=== PATIENT | female | born 1950 | race American Indian/Alaskan Native ===

== ENCOUNTER 2016-07-03 04:07 | Inpatient (IN) | payer MEDICARE ==
[2016-07-03] MEDS ORDERED: TYLENOL PO STA (04:53)
[2016-07-03] MEDS ORDERED: NACL 0.9% 500 ML 500 ML IV ONE (04:53)
[2016-07-03 05:22] LABS: Bacteria,Urine 4+ /HPF (Negative); Bilirubin,Urine NEG (Negative); Blood,Urine LG (Negative); Ketones,Urine NEG (Negative); Leukocyte Esterase,Urine LG (Negative); Mucus,Urine FEW /HPF; Nitrite,Urine NEG (Negative)
[2016-07-03 06:35] LABS: Basophils % (Auto) 0.6 % (0.0-1.8); Eosinophils % (Auto) 0.6 % (0.0-4.3); Hematocrit 31.2 % (30.3-42.9); Hemoglobin 10.1 gm/dl (10.1-14.3); Mean Corpuscular HGB Conc 33 % (30-34); Mean Corpuscular Hemoglobin 28 pg (28-32); Mean Corpuscular Volume 86 fl (79-97); Platelet Count 237 K/mm3 (140-440); Red Blood Count 3.63 M/mm3 (3.65-5.03); Red Cell Distribution Width 19.8 % (13.2-15.2)
[2016-07-03 06:44] LABS: INR 1.09 (0.87-1.13)
[2016-07-03 07:00] LABS: Albumin/Globulin Ratio 0.7 %; Bilirubin,Total 1.1 mg/dL (0.1-1.2); Chloride 98.5 mmol/L (98-107); Total Protein 7.3 g/dL (6.3-8.2)
--- NOTE | 2016-07-03 07:02 | Emergency Department Report ---
HPI - General Chief Complaint: Upper Respiratory Infection Time Seen by Provider: 07/03/16 06:55 - HPI HPI: Chief complaint: Labored breathing HPI: Patient is a 66-year-old female street of hypertension, insulin-dependent diabetes, CVA, decubitus ulcers presents today with labored breathing. Patient lives with her sister who had home health until about one month ago and now takes care of her by herself. Patient has a history of ulcers to her sacral area and her toes. Patient was being seen by wound care nurse until about a month ago and she was discharged for improvement. Sister features through a PEG tube and states for the last 3-4 months she has had decreased mental capacity and only occasionally recognizes her sister. Patient is aphasic from her stroke. Sister states she wants patient to be a full code. Mode of arrival: [EMS] Source: Nursing notes and patient's sister Began: Breathing difficulties over the last day Duration: Continuous Context: See above Quality: Unable to assess Severity: Unable to assess Improved with: Unable to assess Worsened with: Unable to assess Associated signs and symptoms: Unable to assess ED Past Medical Hx - Past Medical History Previous Medical History?: Yes Hx Hypertension: Yes (1999;CVA 06/06 right sided weakness) Hx CVA: Yes (06/19/15) Hx Diabetes: Yes Hx Renal Disease: Yes (chronic renal insufficiency) Hx Arthritis: Yes (back, knees) Hx Dementia: Yes Hx HIV: No Additional medical history: gout, high cholesterol - Surgical History Past Surgical History?: Yes Additional Surgical History: brain. peg tube - Social History Smoking Status: Never Smoker Substance Use Type: None - Medications Home Medications: Home Medications Medication Instructions Recorded Confirmed Last Taken Type Allopurinol [Zyloprim] 100 mg PO QDAY 07/03/16 07/03/16 Unknown History Amantadine [Symmetrel] 100 mg PO DAILY 07/03/16 07/03/16 Unknown History Aspirin [Aspirin TAB] 325 mg PO QDAY 07/03/16 07/03/16 Unknown History AtorvaSTATin [Lipitor] 40 mg PO DAILY 07/03/16 07/03/16 Unknown History Clopidogrel Bisulfate [Plavix] 75 mg PO DAILY 07/03/16 07/03/16 Unknown History Docusate Sodium [Colace] 100 mg PO BID 07/03/16 07/03/16 Unknown History FLUoxetine [PROzac] 20 mg PO QDAY 07/03/16 07/03/16 Unknown History Ferrous Sulfate [Feosol] 325 mg PO BID 07/03/16 07/03/16 Unknown History Insulin Aspart [Novolog Flexpen] 10 unit SQ TID 07/03/16 07/03/16 Unknown History Insulin Detemir [Levemir VIAL] 30 unit SQ QHS 07/03/16 07/03/16 Unknown History Insulin Lispro [HumaLOG VIAL] 15 units SQ TID 07/03/16 07/03/16 Unknown History Metoprolol [Lopressor] 100 mg PO BID 07/03/16 07/03/16 Unknown History Rivastigmine [Exelon] 4.6 mg TD DAILY 07/03/16 07/03/16 Unknown History amLODIPine [Norvasc] 5 mg PO DAILY 07/03/16 07/03/16 Unknown History ED Review of Systems ROS: Stated complaint: SNORING RESPIRATIONS Other details as noted in HPI Comment: Unobtainable due to pts medical conditions (patient is unresponsive and aphasic) Physical Exam - Physical Exam Vital Signs: Vital Signs 07/03/16 07/03/16 07/03/16 04:37 04:40 04:48 Temperature 99.8 F H 99.8 F H Pulse Rate 113 H 113 H 113 H Respiratory 34 H 24 24 Rate Blood Pressure 137/83 137/83 Blood Pressure 137/83 [Left] O2 Sat by Pulse 92 91 94 Oximetry Physical Exam: GENERAL: The patient is a chronically ill-appearing -[place] female with slightly labored breathing. HEENT: Normocephalic. Atraumatic. Patient has dry mucous membranes. NECK: Supple. No meningitic signs are noted. There is no adenopathy noted. CHEST/LUNGS: Clear to auscultation. There is mild respiratory distress noted. HEART/CARDIOVASCULAR: Regular. There is tachycardia. ABDOMEN: Abdomen is soft, nontender. Patient has normal bowel sounds. There is no abdominal distention. He has a G-tube. SKIN: Early breakdown to the sacral area and diaper dermatitis genitalia. There is no edema. There is no diaphoresis. NEURO: The patient is nonverbal. Patient does not to tactile stimulation. MUSCULOSKELETAL: There is no deformity. There is no evidence of acute injury. ED Course Vital Signs 07/03/16 07/03/16 07/03/16 04:37 04:40 04:48 Temperature 99.8 F H 99.8 F H Pulse Rate 113 H 113 H 113 H Respiratory 34 H 24 24 Rate Blood Pressure 137/83 137/83 Blood Pressure 137/83 [Left] O2 Sat by Pulse 92 91 94 Oximetry - Reevaluation(s) Reevaluation #1: 07/03/16 07:04 Patient given Tylenol and IV fluids prior to my evaluation. 07/03/16 07:13 Patient will be given 2 L of normal saline and 1 g of IV Rocephin and admitted to the hospitalists for acute renal failure ED Medical Decision Making - Lab Data Result diagrams: 07/03/16 05:38 07/03/16 05:38 Laboratory Tests 07/03/16 07/03/16 07/03/16 04:51 05:38 05:38 PT 14.0 INR 1.09 VBG pH Lactic Acid 1.5 Urine Turbidity Cloudy Urine pH 7.0 Ur Specific [place] 1.012 Ur Leukocyte Esterase Lg Urine WBC (Auto) 12.0 H Urine RBC (Auto) 2.0 U Epithel Cells (Auto) 25.0 H Urine Bacteria (Auto) 4+ 07/03/16 05:38 PT INR VBG pH 7.438 H Lactic Acid Urine Turbidity Urine pH Ur Specific [place] Ur Leukocyte Esterase Urine WBC (Auto) Urine RBC (Auto) U Epithel Cells (Auto) Urine Bacteria (Auto) - EKG Data -: EKG Interpreted by Me EKG shows normal: sinus rhythm Rate: tachycardia (116) - EKG Data When compared to previous EKG there are: changes noted (tachycardia is new.) Interpretation: other (left axis deviation, minimal voltage criteria for LVH.) Critical care attestation.: If time is entered above; I have spent that time in minutes in the direct care of this critically ill patient, excluding procedure time. ED Disposition Clinical Impression: ARF (acute renal failure) Qualifiers: Acute renal failure type: unspecified Qualified Code(s): N17.9 - Acute kidney failure, unspecified Urinary tract infection Qualifiers: Urinary tract infection type: site unspecified Hematuria presence: without hematuria Qualified Code(s): N39.0 - Urinary tract infection, site not specified Disposition: OP ADMITTED IP TO THIS HOSP Is pt being admited?: Yes Does the pt Need Aspirin: Yes Condition: Serious Referrals: PRIMARY CARE, [Primary Care Provider] - 3-5 Days Time of Disposition: 07:14 (admit to the hospitalist)
[2016-07-03 07:05] LABS: BUN/Creatinine Ratio 19.86
[2016-07-03 07:06] LABS: Calcium 12.2 mg/dL (8.4-10.2)
[2016-07-03] MEDS ORDERED: NACL 0.9% 1000 ML IV ONE (07:07)
[2016-07-03] MEDS ORDERED: ASPIRIN FEEDTUBE ONE (07:16)
--- NOTE | 2016-07-03 07:22 | XRay Report ---
AP CHEST: HISTORY: Sepsis, fever AP view of the chest demonstrates a normal mediastinal and cardiac contour with clear lungs and normal bony and soft tissue structures. IMPRESSION: Unremarkable AP chest. No significant change since 02/01/16.
--- NOTE | 2016-07-03 07:23 | Admit Criteria Form ---
"Admission Criteria Documentation: RENAL FAILURE, ACUTE Clinical Indications for Admission to Inpatient Care ( Place 'X' for any and all applicable criteria): Admission is indicated for ALL (if I & II) or III of the following [A](2)(3)(4)( 5)(6)(7): [ ]I. Acute renal failure as indicated by ANY ONE of the following: [ ]a) A 3-fold rise in serum creatinine from baseline [ ]b) Serum creatinine greater than 4 mg/dL (354 micromoles/L) with an acute rise greater than 0.5 mg/dL (44.2 micromoles/L) [ ]c) Reduction of more than 75% in estimated glomerular filtration rate from baseline [ ]d) Estimated glomerular filtration rate less than 35 mL/min/1.73m2 (0.59mL/sec/1.73m2)in a child up to 18 years of age [ ]e) Anuria indicated by ALL of the following: [ ]i) Adequate volume status [ ]ii) Cessation of urine output indicated by ANY ONE of the following: [ ]1) Urine output less than 0.3 mL/kg/hr for 24 hours [ ]2) Anuria (urine output less than 0.1 mL/kg/ hr) for 12 hours [X ] II. Renal failure cannot be managed in an outpatient setting or observational care setting as indicating by ANY ONE of the following: [ ]a) Altered mental status that is severe or persistent [ ]b) Volume overload or Respiratory distress (eg, clinically significant pulmonary edema) that is severe or persistent [ ]c) Cardiac arrhythmias of immediate concern [ ]d) Hemodynamic instability [ X]e) Clinically significant electrolyte abnormality that requires inpatient care (eg, hyperkalemia with severe ECG findings)[B] [ ]f) Clinically significant metabolic abnormality (eg, acidosis) that is severe or persistent [ ]g) Acute treatment of renal failure (eg, renal replacement therapy) not feasible or appropriate in observational care setting [ ]h) Clinical situation too unstable or uncertain (eg, inadequate urine output, ongoing decline in renal function, etiology unclear) [ ]i) Necessary support and caregiver ability to comply with outpatient treatment cannot be arranged in observation care timeframe (eg, within 24 hours) [ ]j) Other significant finding or clinical condition judged not to be within scope of observation care [ X]III.General contraindications and/or Inappropriate clinical situations for Observational Care in patients with Acute Renal Failure, when ANY ONE of the following is required: [ X]a) Prediction of prolongation of LOS based on ANY ONE of the following may be considered as a contraindication for observational care 2, 3, 4, 5, 6, 7, 8 , 9, 10, 11 [ ]i) Age > 65 yrs. [ X]ii) Patient arriving by ambulance [ ]iii) Patient with high acuity [ ]iv) Patient requiring vital sign monitoring [ ]v) Patient on IV medication [ ]b) Systolic blood pressures 180mmHg 3,12 [ ]c) Patient with altered mental status including delirium and other alteration of consciousness, (3) [ ]d) Patient whose discharge disposition will be to a group home home or rehabilitation home should not be managed in Emergency Department Observation Unit. CMS rule requires 3 days hospital stay before such placement.3,13 [ ]e) Patient with failure to thrive due to broad array of etiologies 3, 16,17 [ ]f) Inability to ambulate 3,14 Extended stay beyond goal length of stay may be needed for(13) [ ]a) Continuing uremic complications [ ]b) Care for comorbidities [ ]c) acute renal failure [ ]d) Need for dialysis The original [employer] content created by [employer] has been revised. The portions of the content which have been revised are identified through the use of italic text or in bold, and [facility] has neither reviewed nor approved the modified material. All other unmodified content is copyright [employer] [facility] [employer] Anywhere. Please see references footnoted in the original [employer] [facility] [employer] [facility] [employer] edition 2016 Admission Criteria Met: Yes"
[2016-07-03] MEDS ORDERED: ROCEPHIN/NS 1 GM/50 ML 1 GM/50 ML BAG IV ONE (07:30)
[2016-07-03] MEDS ORDERED: NACL 0.9% 1000 ML 1,000 ML IV SCH (08:00)
[2016-07-03] MEDS ORDERED: DULCOLAX PR PRN (09:00)
[2016-07-03] MEDS ORDERED: TYLENOL PR PRN (09:00)
[2016-07-03] MEDS ORDERED: ZOFRAN IV PRN (09:00)
[2016-07-03] MEDS ORDERED: MILK OF MAGNESIA PO PRN (09:00)
[2016-07-03] MEDS: ASPIRIN PO SCH (09:57)
[2016-07-03] MEDS: LOPRESSOR PO SCH ×2 (10:00→23:14)
[2016-07-03] MEDS: SYMMETREL PO SCH (10:00)
[2016-07-03] MEDS: FEOSOL PO SCH ×2 (10:00→23:15)
[2016-07-03] MEDS: EXELON TD SCH (10:00)
[2016-07-03] MEDS: PLAVIX PO SCH (10:00)
[2016-07-03] MEDS: ZYLOPRIM PO SCH (10:00)
[2016-07-03] MEDS: NORVASC PO SCH (10:00)
[2016-07-03] MEDS: PROzac PO SCH (10:00)
[2016-07-03] MEDS: COLACE PO SCH ×2 (10:00→23:15)
--- NOTE | 2016-07-03 13:42 | History and Physical Report ---
History of Present Illness Date of examination: 07/03/16 Date of admission: 07/03/16 07:24 Chief complaint: Respiratory distress History of present illness: Patient is a 66-year-old female history of CVA and since then has been home bound and bedbound also history of hypertension, insulin-dependent diabetes, decubitus ulcers presents today with labored breathing. She is cared for by her sister with home health care and also has multiple sacral ulcers and also new ulcers on the right side of her toe off an abrasion which did Sr. states happened a few weeks ago. The sister reports that the patient although has a PEG tube has been having some changes of fluid level during feeding which made her note is that the patient's breathing had become more heavier over the past few weeks and today was worsening in her condition prompted her to bring her to the hospital. The patient had a wound care nurse up until about a month ago and was improving. She denies any observation of nausea or vomiting the patient' s mental capacity has been declining recurrent cystitis noticed for the past month Past History Past Medical History: diabetes, hypertension, other (scaral ulcer, ) Past Surgical History: Other (peg) Social history: full code Family history: no significant family history Medications and Allergies Allergies Allergy/AdvReac Type Severity Reaction Status Date / Time Sulfa (Sulfonamide Allergy Unknown Verified 07/03/16 04:37 Antibiotics) Home Medications Medication Instructions Recorded Confirmed Last Taken Type Allopurinol [Zyloprim] 100 mg PO QDAY 07/03/16 07/03/16 Unknown History Amantadine [Symmetrel] 100 mg PO DAILY 07/03/16 07/03/16 Unknown History Aspirin [Aspirin TAB] 325 mg PO QDAY 07/03/16 07/03/16 Unknown History AtorvaSTATin [Lipitor] 40 mg PO DAILY 07/03/16 07/03/16 Unknown History Clopidogrel Bisulfate [Plavix] 75 mg PO DAILY 07/03/16 07/03/16 Unknown History Docusate Sodium [Colace] 100 mg PO BID 07/03/16 07/03/16 Unknown History FLUoxetine [PROzac] 20 mg PO QDAY 07/03/16 07/03/16 Unknown History Ferrous Sulfate [Feosol] 325 mg PO BID 07/03/16 07/03/16 Unknown History Insulin Aspart [Novolog Flexpen] 10 unit SQ TID 07/03/16 07/03/16 Unknown History Insulin Detemir [Levemir VIAL] 30 unit SQ QHS 07/03/16 07/03/16 Unknown History Insulin Lispro [HumaLOG VIAL] 15 units SQ TID 07/03/16 07/03/16 Unknown History Metoprolol [Lopressor] 100 mg PO BID 07/03/16 07/03/16 Unknown History Rivastigmine [Exelon] 4.6 mg TD DAILY 07/03/16 07/03/16 Unknown History amLODIPine [Norvasc] 5 mg PO DAILY 07/03/16 07/03/16 Unknown History Active Meds: Active Medications Acetaminophen (Tylenol) 650 mg PO Q4H PRN PRN Reason: Pain MILD(1-3)/Fever >100.5/[place] Acetaminophen (Tylenol) 650 mg UT Q4H PRN PRN Reason: Pain MILD(1-3)/Fever >100.5/[place] Allopurinol (Zyloprim) 100 mg PO QDAY [facility] Amantadine HCl (Symmetrel) 100 mg PO DAILY [facility] Amlodipine Besylate (Norvasc) 5 mg PO DAILY [facility] Aspirin (Aspirin) 325 mg PO QDAY [facility] Last Admin: 07/03/16 09:57 Dose: Not Given Atorvastatin Calcium (Lipitor) 40 mg PO DAILY [facility] Bisacodyl (Dulcolax) 10 mg UT QDAY PRN PRN Reason: Constipation unrelieved by MOM Clopidogrel Bisulfate (Plavix) 75 mg PO DAILY [facility] Dextrose (D50w (25gm)) 50 ml IV PRN PRN PRN Reason: Hypoglycemia Docusate Sodium (Colace) 100 mg PO BID [facility] Ferrous Sulfate (Feosol) 325 mg PO BID [facility] Fluoxetine HCl (Prozac) 20 mg PO QDAY [facility] Ceftriaxone Sodium (Rocephin/Ns 1 Gm/50 Ml) 1 gm in 50 mls @ 100 mls/hr IV Q24HR [place] PRN Reason: Protocol Sodium Chloride (Nacl 0.9% 1000 Ml) 1,000 mls @ 150 mls/hr IV DIRECT [facility] Stop: 07/05/16 14:39 Last Admin: 07/03/16 09:12 Dose: 150 mls/hr Insulin Detemir (Levemir) 30 units SUB-Q QHS [facility] Insulin Human Regular (Novolin R) 15 units SUB-Q Q8H [facility] Last Admin: 07/03/16 09:35 Dose: Not Given Magnesium Hydroxide (Milk Of Magnesia) 30 ml PO Q4H PRN PRN Reason: Constipation Metoprolol Tartrate (Lopressor) 100 mg PO BID [facility] Ondansetron HCl (Zofran) 4 mg IV Q8H PRN PRN Reason: N/V unrelieved by Reglan Rivastigmine (Exelon) 4.6 mg TD DAILY [facility] Review of Systems ROS unobtainable: due to mental status Exam - Physical Exam Narrative exam: VITAL SIGNS: Reviewed. GENERAL: The patient appeared critically ill. Vital signs as documented. HEAD: No signs of head trauma. EYES: Pupils are equal. Extraocular motions intact. EARS: Hearing grossly intact. MOUTH: Oropharynx dry mucous membranes. NECK: No adenopathy, no JVD. CHEST: Chest diminished at the bases bilaterally. Tachypneic CARDIAC: Regular rate and rhythm. S1 and S2, without murmurs, gallops, or rubs. VASCULAR: No Edema. Peripheral pulses normal and equal in all extremities. ABDOMEN: Soft, without detectable tenderness. No sign of distention. No rebound or guarding, and no masses palpated. Bowel Sounds normal. MUSCULOSKELETAL: Good range of motion of all major joints. Extremities without clubbing, cyanosis or edema. NEUROLOGIC EXAM: Aphasic not following commands PSYCHIATRIC: Unable to assess SKIN: Sacral decubitus ulcer - Constitutional Vitals: Temp Pulse Resp BP Pulse Ox 99.8 F H 98 H 27 H 151/77 100 07/03/16 07:04 07/03/16 10:30 07/03/16 10:30 07/03/16 10:30 07/03/16 10:30 Results - Labs CBC & Chem 7: 07/03/16 05:38 07/03/16 05:38 Labs: Laboratory Last Values WBC 14.0 K/mm3 (4.5-11.0) H 07/03/16 05:38 RBC 3.63 M/mm3 (3.65-5.03) L 07/03/16 05:38 Hgb 10.1 gm/dl (10.1-14.3) 07/03/16 05:38 Hct 31.2 % (30.3-42.9) 07/03/16 05:38 MCV 86 fl (79-97) 07/03/16 05:38 MCH 28 pg (28-32) 07/03/16 05:38 MCHC 33 % (30-34) 07/03/16 05:38 RDW 19.8 % (13.2-15.2) H 07/03/16 05:38 Plt Count 237 K/mm3 (140-440) 07/03/16 05:38 Lymph % (Auto) 16.6 % (13.4-35.0) 07/03/16 05:38 [place] % (Auto) 9.5 % (0.0-7.3) H 07/03/16 05:38 Eos % (Auto) 0.6 % (0.0-4.3) 07/03/16 05:38 Baso % (Auto) 0.6 % (0.0-1.8) 07/03/16 05:38 Lymph # 2.3 K/mm3 (1.2-5.4) 07/03/16 05:38 [place] # 1.3 K/mm3 (0.0-0.8) H 07/03/16 05:38 Eos # 0.1 K/mm3 (0.0-0.4) 07/03/16 05:38 Baso # 0.1 K/mm3 (0.0-0.1) 07/03/16 05:38 Seg Neutrophils % 72.7 % (40.0-70.0) H 07/03/16 05:38 Seg Neutrophils # 10.2 K/mm3 (1.8-7.7) H 07/03/16 05:38 PT 14.0 Sec. (12.2-14.9) 07/03/16 05:38 INR 1.09 (0.87-1.13) 07/03/16 05:38 VBG pH 7.438 (7.320-7.420) H 07/03/16 05:38 Sodium 144 mmol/L (137-145) 07/03/16 05:38 Potassium 5.0 mmol/L (3.6-5.0) 07/03/16 05:38 Chloride 98.5 mmol/L (98-107) 07/03/16 05:38 Carbon Dioxide 25 mmol/L (22-30) 07/03/16 05:38 Anion Gap 26 mmol/L 03/15/17 05:38 BUN 149 mg/dL (7-17) H 07/03/16 05:38 Creatinine 7.5 mg/dL (0.7-1.2) H 07/03/16 05:38 Estimated GFR 7 ml/min 07/03/16 05:38 BUN/Creatinine Ratio 19.86 % 07/03/16 05:38 Glucose 127 mg/dL (65-100) H 07/03/16 05:38 POC Glucose 111 (70-105) H 07/03/16 12:16 Lactic Acid 0.9 mmol/L (0.7-2.0) 07/03/16 12:12 Calcium 12.2 mg/dL (8.4-10.2) H* 07/03/16 05:38 Total Bilirubin 1.1 mg/dL (0.1-1.2) 07/03/16 05:38 AST 317 units/L (5-40) H 07/03/16 05:38 ALT 198 units/L (7-56) H 07/03/16 05:38 Alkaline Phosphatase 417 units/L (35-129) H 07/03/16 05:38 Total Protein 7.3 g/dL (6.3-8.2) 07/03/16 05:38 Albumin 3.0 g/dL (3.9-5) L 07/03/16 05:38 Albumin/Globulin Ratio 0.7 % 07/03/16 05:38 Urine Color Red (Yellow) 07/03/16 04:51 Urine Turbidity Cloudy (Clear) 07/03/16 04:51 Urine pH 7.0 (5.0-7.0) 07/03/16 04:51 Ur Specific [place] 1.012 (1.003-1.030) 07/03/16 04:51 Urine Protein 100 mg/dl mg/dL (Negative) 07/03/16 04:51 Urine Glucose (UA) Neg mg/dL (Negative) 07/03/16 04:51 Urine Ketones Neg mg/dL (Negative) 07/03/16 04:51 Urine Blood Lg (Negative) 07/03/16 04:51 Urine Nitrite Neg (Negative) 07/03/16 04:51 Urine Bilirubin Neg (Negative) 07/03/16 04:51 Urine Urobilinogen 4.0 mg/dL (<2.0) 07/03/16 04:51 Ur Leukocyte Esterase Lg (Negative) 07/03/16 04:51 Urine WBC (Auto) 12.0 /HPF (0.0-6.0) H 07/03/16 04:51 Urine RBC (Auto) 2.0 /HPF (0.0-6.0) 07/03/16 04:51 U Epithel Cells (Auto) 25.0 /HPF (0-13.0) H 07/03/16 04:51 Urine Bacteria (Auto) 4+ /HPF (Negative) 07/03/16 04:51 Urine Mucus Few /HPF 07/03/16 04:51 - Imaging and Cardiology Chest x-ray: image reviewed (no acute pathology noted) Assessment and Plan Assessment and plan: Patient is a 66-year-old female history of CVA and since then has been home bound and bedbound also history of hypertension, insulin-dependent diabetes, decubitus ulcers presents today with labored breathing. She is cared for by her sister with home health care and also has multiple sacral ulcers and also new ulcers on the right side of her toe off an abrasion which did Sr. states happened a few weeks ago. The sister reports that the patient although has a PEG tube has been having some changes of fluid level during feeding which made her note is that the patient's breathing had become more heavier over the past few weeks and today was worsening in her condition prompted her to bring her to the hospital. The patient had a wound care nurse up until about a month ago and was improving. 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 Advance Directives: Yes Plan of care discussed with patient/family: Yes
[2016-07-03] MEDS ORDERED: PROVENTIL IH SCH (14:00)
[2016-07-03] MEDS ORDERED: PROVENTIL IH PRN (14:21)
[2016-07-03 15:22] LABS: Calcium 11.1 mg/dL (8.4-10.2); Chloride 103.6 mmol/L (98-107); Potassium 4.7 mmol/L (3.6-5.0)
[2016-07-03 15:28] LABS: BUN/Creatinine Ratio 19.57
--- NOTE | 2016-07-03 15:43 | Consultation ---
History of Present Illness - Reason for Consult Consult date: 07/03/16 acute renal failure, chronic renal failure Requesting physician: ELIAZAR FERREIRA - History of Present Illness Patient is a 66-year-old female history of CVA and since then has been home bound and bedbound also history of hypertension, insulin-dependent diabetes, decubitus ulcers presents today with labored breathing. She is cared for by her sister with home health care and also has multiple sacral ulcers and also new ulcers on the right side of her toe off an abrasion which did Sr. states happened a few weeks ago. The sister reports that the patient although has a PEG tube has been having some changes of fluid level during feeding which made her note is that the patient's breathing had become more heavier over the past few weeks and today was worsening in her condition prompted her to bring her to the hospital. The patient had a wound care nurse up until about a month ago and was improving. She denies any observation of nausea or vomiting the patient' s mental capacity has been declining recurrent cystitis noticed for the past month Past History Past Medical History: diabetes, hypertension, other (scaral ulcer, ) Past Surgical History: Other (peg) Social history: full code Family history: no significant family history Past History Past Medical History: diabetes, hypertension, other (scaral ulcer, ) Past Surgical History: Other (peg) Social history: full code Family history: no significant family history Medications and Allergies Allergies Allergy/AdvReac Type Severity Reaction Status Date / Time Sulfa (Sulfonamide Allergy Unknown Verified 07/03/16 04:37 Antibiotics) Home Medications Medication Instructions Recorded Confirmed Last Taken Type Allopurinol [Zyloprim] 100 mg PO QDAY 07/03/16 07/03/16 Unknown History Amantadine [Symmetrel] 100 mg PO DAILY 07/03/16 07/03/16 Unknown History Aspirin [Aspirin TAB] 325 mg PO QDAY 07/03/16 07/03/16 Unknown History AtorvaSTATin [Lipitor] 40 mg PO DAILY 07/03/16 07/03/16 Unknown History Clopidogrel Bisulfate [Plavix] 75 mg PO DAILY 07/03/16 07/03/16 Unknown History Docusate Sodium [Colace] 100 mg PO BID 07/03/16 07/03/16 Unknown History FLUoxetine [PROzac] 20 mg PO QDAY 07/03/16 07/03/16 Unknown History Ferrous Sulfate [Feosol] 325 mg PO BID 07/03/16 07/03/16 Unknown History Insulin Aspart [Novolog Flexpen] 10 unit SQ TID 07/03/16 07/03/16 Unknown History Insulin Detemir [Levemir VIAL] 30 unit SQ QHS 07/03/16 07/03/16 Unknown History Insulin Lispro [HumaLOG VIAL] 15 units SQ TID 07/03/16 07/03/16 Unknown History Metoprolol [Lopressor] 100 mg PO BID 07/03/16 07/03/16 Unknown History Rivastigmine [Exelon] 4.6 mg TD DAILY 07/03/16 07/03/16 Unknown History amLODIPine [Norvasc] 5 mg PO DAILY 07/03/16 07/03/16 Unknown History Active Meds: Active Medications Acetaminophen (Tylenol) 650 mg PO Q4H PRN PRN Reason: Pain MILD(1-3)/Fever >100.5/[place] Acetaminophen (Tylenol) 650 mg MI Q4H PRN PRN Reason: Pain MILD(1-3)/Fever >100.5/[place] Albuterol (Proventil) 2.5 mg IH Q6HRT PRN PRN Reason: Shortness Of Breath Albuterol/Ipratropium (Duoneb 0.5 Mg-3 Mg/3 Ml Soln) 1 ampul IH Q6HRT [facility] Allopurinol (Zyloprim) 100 mg PO QDAY [facility] Amantadine HCl (Symmetrel) 100 mg PO DAILY [facility] Amlodipine Besylate (Norvasc) 5 mg PO DAILY [facility] Aspirin (Aspirin) 325 mg PO QDAY [facility] Last Admin: 07/03/16 09:57 Dose: Not Given Atorvastatin Calcium (Lipitor) 40 mg PO DAILY [facility] Bisacodyl (Dulcolax) 10 mg MI QDAY PRN PRN Reason: Constipation unrelieved by MOM Clopidogrel Bisulfate (Plavix) 75 mg PO DAILY [facility] Dextrose (D50w (25gm)) 50 ml IV PRN PRN PRN Reason: Hypoglycemia Docusate Sodium (Colace) 100 mg PO BID [facility] Ferrous Sulfate (Feosol) 325 mg PO BID [facility] Fluoxetine HCl (Prozac) 20 mg PO QDAY [facility] Ceftriaxone Sodium (Rocephin/Ns 1 Gm/50 Ml) 1 gm in 50 mls @ 100 mls/hr IV Q24HR [facility] PRN Reason: Protocol Sodium Chloride (Nacl 0.9% 1000 Ml) 1,000 mls @ 150 mls/hr IV DIRECT [facility] Stop: 07/05/16 14:39 Last Admin: 07/03/16 09:12 Dose: 150 mls/hr Insulin Detemir (Levemir) 30 units SUB-Q QHS [facility] Insulin Human Regular (Novolin R) 15 units SUB-Q Q8H [facility] Last Admin: 07/03/16 09:35 Dose: Not Given Magnesium Hydroxide (Milk Of Magnesia) 30 ml PO Q4H PRN PRN Reason: Constipation Metoprolol Tartrate (Lopressor) 100 mg PO BID [facility] Ondansetron HCl (Zofran) 4 mg IV Q8H PRN PRN Reason: N/V unrelieved by Reglan Rivastigmine (Exelon) 4.6 mg TD DAILY [facility] Review of Systems ROS unobtainable: due to mental status Exam - Vital Signs Vital signs: Vital Signs Pulse Resp BP Pulse Ox 113 H 34 H 137/83 92 07/03/16 04:37 07/03/16 04:37 07/03/16 04:37 07/03/16 04:37 - Physical Exam Narrative exam: VITAL SIGNS: Reviewed. GENERAL: The patient appeared critically ill. Vital signs as documented. HEAD: No signs of head trauma. EYES: Pupils are equal. Extraocular motions intact. EARS: Hearing grossly intact. MOUTH: Oropharynx dry mucous membranes. NECK: No adenopathy, no JVD. CHEST: Chest diminished at the bases bilaterally. Tachypneic CARDIAC: Regular rate and rhythm. S1 and S2, without murmurs, gallops, or rubs. VASCULAR: No Edema. Peripheral pulses normal and equal in all extremities. ABDOMEN: Soft, without detectable tenderness. No sign of distention. No rebound or guarding, and no masses palpated. Bowel Sounds normal. MUSCULOSKELETAL: Good range of motion of all major joints. Extremities without clubbing, cyanosis or edema. NEUROLOGIC EXAM: Aphasic not following commands PSYCHIATRIC: Unable to assess SKIN: Sacral decubitus ulcer Results - Lab Results 07/03/16 05:38 07/03/16 14:44 Most recent lab results Calcium 11.1 mg/dL (8.4-10.2) H 07/03/16 14:44 Assessment and Plan Impression * Acute on chronic renal failure. Baseline creatinine approximately 1.6 * Hypernatremia * Dehydration * History of hypertension * History of CVA with right-sided hemiparesis * History of diabetes * uti * hypercalcemia Recommendations * Shall check a UA as well as a fractional excretion of sodium * Shall also check a urine osmolality * Agree with IV hydration with hypotonic fluids * Patient's renal function baseline cr is 1.6 * no emergent indication for manager of security therapy today, but if does not improve may need manager of security * Monitor patient's fluid status, electrolytes and renal function closely * Avoid nephrotoxins * continue iv abx * Shall Check office records regarding her previous renal status and workup * Thank you very much for the consultation. Shall follow along with you
[2016-07-03] MEDS ORDERED: DUONEB 0.5 MG-3 MG/3 ML SOLN IH SCH (16:00)
--- NOTE | 2016-07-03 16:21 | Cat Scan Report ---
CT head without contrast: Comparison is made to the most recent prior studies of 1028 2015. There is a large area of decreased hypodensity in the right cerebellum and another in the left temporal-parietal region. There is a focal area of osteomalacia in the left temporal region adjacent to a large craniotomy. Severe decreased periventricular white matter changes present. There is mild enlargement of the lateral and third ventricles. No hemorrhage and no extracerebral collection. No mass effect. The paranasal sinuses are clear. These findings are all unchanged from prior examination. Impression: 1. Chronic infarctions. 2. Severe micro-ischemic white matter changes. 3. Senescent cerebral changes with mild ventricular enlargement.
[2016-07-03] MEDS ORDERED: PANCREAZE DR 10,500 UNIT FEEDTUBE PRN (16:33)
[2016-07-03] MEDS ORDERED: SODIUM BICARBONATE FEEDTUBE PRN (16:33)
[2016-07-03] MEDS ORDERED: SIMPLE SYRUP FEEDTUBE PRN (16:33)
[2016-07-03] MEDS: D5/0.45NS 1,000 ML IV SCH (18:36)
[2016-07-03] MEDS: DUONEB 0.5 MG-3 MG/3 ML SOLN IH SCH (19:27)
[2016-07-03] MEDS: LEVEMIR SUB-Q SCH (23:15)
[2016-07-04] MEDS: DUONEB 0.5 MG-3 MG/3 ML SOLN IH SCH ×4 (01:57→20:22)
[2016-07-04] MEDS: D5/0.45NS 1,000 ML IV SCH ×3 (02:30→18:13)
[2016-07-04 06:24] LABS: Eosinophils % (Auto) 1.3 % (0.0-4.3); Hematocrit 27.7 % (30.3-42.9); Hemoglobin 8.9 gm/dl (10.1-14.3); Mean Corpuscular HGB Conc 32 % (30-34); Mean Corpuscular Hemoglobin 28 pg (28-32); Mean Corpuscular Volume 88 fl (79-97); Platelet Count 203 K/mm3 (140-440); Red Blood Count 3.16 M/mm3 (3.65-5.03); Red Cell Distribution Width 19.6 % (13.2-15.2); White Blood Count 10.5 K/mm3 (4.5-11.0)
[2016-07-04 06:52] LABS: Albumin 2.7 g/dL (3.9-5); Albumin/Globulin Ratio 0.8 %; Bilirubin,Total 1.1 mg/dL (0.1-1.2); Calcium 10.7 mg/dL (8.4-10.2); Chloride 109.2 mmol/L (98-107); Potassium 4.3 mmol/L (3.6-5.0); Total Protein 6.3 g/dL (6.3-8.2)
[2016-07-04 07:06] LABS: BUN/Creatinine Ratio 19.56
--- NOTE | 2016-07-04 08:52 | Progress Note ---
Assessment and Plan Impression * Acute kidney injury on stage III chronic kidney disease --SCr 2.1mg/dL in Jan 2016 * Hypernatremia * Dehydration * Hypertension * CVA with right-sided hemiparesis * Dementia * Type II DM * UTI * Hypercalcemia - improved Recommendations * Renal function unchanged * Abx per primary team - blood cx NGTD; UA c/w UTI but UCx ?? collected * Agree with IV hydration with hypotonic fluids * Start free water with TF - 200ml [id number] * Renal u/s ordered * Obtain urine lytes * Adjust medications for renal function * Avoid nephrotoxins * Patient may require hemodialysis if renal function fails to improve Subjective Date of service: 07/04/16 Interval history: No acute events overnight. Sister at bedside - she reports that patient's alertness has improved since admission. Objective - Vital Signs Vital signs: Vital Signs - 12hr 07/03/16 07/03/16 07/03/16 23:14 23:23 23:50 Temperature 99.9 F H 99.0 F Pulse Rate 102 H Pulse Rate [ Anterior Bilateral Throughout] Pulse Rate [ 104 H 104 H Right Radial] Respiratory 20 24 Rate Respiratory Rate [Anterior Bilateral Throughout] Blood Pressure 190/80 Blood Pressure 190/80 180/86 [Right Arm] O2 Sat by Pulse 90 100 Oximetry 07/04/16 07/04/16 07/04/16 01:00 01:57 02:12 Temperature Pulse Rate Pulse Rate [ 89 91 H Anterior Bilateral Throughout] Pulse Rate [ Right Radial] Respiratory Rate Respiratory 20 20 Rate [Anterior Bilateral Throughout] Blood Pressure Blood Pressure 160/80 [Right Arm] O2 Sat by Pulse Oximetry 07/04/16 07/04/16 07:05 07:38 Temperature 98.4 F Pulse Rate Pulse Rate [ Anterior Bilateral Throughout] Pulse Rate [ 77 Right Radial] Respiratory 24 Rate Respiratory Rate [Anterior Bilateral Throughout] Blood Pressure Blood Pressure 180/80 178/85 [Right Arm] O2 Sat by Pulse 100 Oximetry - General Appearance General appearance: well-developed, chronically ill EENT: ATNC Respiratory: Present: Clear to Ascultation Cardiology: regular, S1S2 Gastrointestinal: normal, no tenderness, no distended Integumentary: no rash, warm and dry Neurologic: other (unresponsive) Psychiatric: mood/affect appropriate, cooperative - Lab 07/04/16 06:00 07/04/16 04:00 Most recent lab results Calcium 10.7 mg/dL (8.4-10.2) H 07/04/16 04:00
[2016-07-04] MEDS: ROCEPHIN/NS 1 GM/50 ML 1 GM/50 ML BAG IV SCH (09:17)
[2016-07-04] MEDS: EXELON TD SCH (09:18)
[2016-07-04] MEDS: LOPRESSOR PO SCH ×2 (09:18→22:29)
[2016-07-04] MEDS: PROzac PO SCH (09:18)
[2016-07-04] MEDS: FEOSOL PO SCH ×2 (09:18→22:11)
[2016-07-04] MEDS: COLACE PO SCH ×2 (09:18→22:10)
[2016-07-04] MEDS: ASPIRIN PO SCH (09:19)
[2016-07-04] MEDS: PLAVIX PO SCH (09:19)
[2016-07-04] MEDS: NORVASC PO SCH (09:19)
[2016-07-04] MEDS: SYMMETREL PO SCH (09:19)
[2016-07-04] MEDS: ZYLOPRIM PO SCH (10:00)
[2016-07-04] MEDS: D50W (25GM) IV PRN ×2 (12:29→18:33)
[2016-07-04] MEDS: SIMPLE SYRUP FEEDTUBE PRN (17:23)
--- NOTE | 2016-07-04 19:28 | Progress Note ---
Assessment and Plan 1. Acute metabolic encephalopathy 2. Sepsis: Ruled out. Lactic acid levels are normal. Blood and urine cultures were unremarkable 3. Acute and chronic respiratory failure: Continue bronchodilators and supplemental oxygen 4. Acute kidney injury on chronic kidney disease secondary to vasomotor nephropathy present on admission: Continue with IV hydration as is predominantly prerenal. Appreciate nephrology input 5. Diabetes mellitus: Sliding scale insulin 6. Aphasia: Unknown etiology. CT of the brain showed evidence of chronic infections. 7. Sacral pressure ulcers-present on admission. Local wound care. 8. 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 Hypertension: Optimize blood pressure control 10. s/p PEG tube: Stomachache and feeding regimen by dietitian 11. Discussed management plan with patient sister who was in the room at the time of evaluation Subjective Date of service: 07/04/16 Principal diagnosis: sepsis, metabolic encephalopathy Interval history: Remains nonverbal,follow commands. Patient sister by the bedside Objective - Constitutional Vitals: Vital Signs - 12hr 07/04/16 07/04/16 07/04/16 07:38 08:20 09:13 Temperature 97.8 F Pulse Rate [ 92 H Anterior Bilateral Throughout] Pulse Rate [ 92 H Left Radial] Respiratory 24 Rate Respiratory 16 Rate [Anterior Bilateral Throughout] Blood Pressure Blood Pressure 165/84 [Left Arm] Blood Pressure 178/85 [Right Arm] O2 Sat by Pulse 100 100 Oximetry 07/04/16 07/04/16 07/04/16 09:18 09:19 09:27 Temperature Pulse Rate [ 95 H Anterior Bilateral Throughout] Pulse Rate [ Left Radial] Respiratory Rate Respiratory 17 Rate [Anterior Bilateral Throughout] Blood Pressure 178/85 178/85 Blood Pressure [Left Arm] Blood Pressure [Right Arm] O2 Sat by Pulse Oximetry 07/04/16 07/04/16 07/04/16 11:29 12:00 15:00 Temperature 98.2 F Pulse Rate [ 85 Anterior Bilateral Throughout] Pulse Rate [ 71 Left Radial] Respiratory 22 Rate Respiratory 17 Rate [Anterior Bilateral Throughout] Blood Pressure Blood Pressure 141/64 [Left Arm] Blood Pressure [Right Arm] O2 Sat by Pulse 100 100 Oximetry 07/04/16 07/04/16 15:22 15:24 Temperature 97.7 F Pulse Rate [ 88 Anterior Bilateral Throughout] Pulse Rate [ 73 Left Radial] Respiratory 20 Rate Respiratory 17 Rate [Anterior Bilateral Throughout] Blood Pressure Blood Pressure 153/69 [Left Arm] Blood Pressure [Right Arm] O2 Sat by Pulse 99 Oximetry General appearance: Present: well-nourished, other (nonverbal, doesn't follow commands.) - EENT Eyes: PERRL, EOM intact - Neck Neck: supple, normal ROM - Respiratory Respiratory effort: normal Respiratory: bilateral: CTA - Breasts Breasts: normal - Cardiovascular Rhythm: regular Heart Sounds: Present: S1 & S2. Absent: gallop, rub Extremities: pulses intact, No edema, normal color, Full ROM - Gastrointestinal General gastrointestinal: Present: soft, non-tender, non-distended, normal bowel sounds - Genitourinary Female genitourinary: normal - Integumentary Integumentary: clear, warm, dry - Psychiatric Psychiatric: other (confused) - Labs CBC & Chem 7: 07/04/16 06:00 07/04/16 04:00 Labs: Abnormal lab results 07/03/16 07/03/16 07/04/16 Range/Units 21:36 22:06 04:00 RBC (3.65-5.03) M/mm3 Hgb (10.1-14.3) gm/dl Hct (30.3-42.9) % RDW (13.2-15.2) % [place] % (Auto) (0.0-7.3) % Seg Neutrophils % (40.0-70.0) % Seg Neutrophils # (1.8-7.7) K/mm3 Sodium 149 H (137-145) mmol/L Chloride 109.2 H (98-107) mmol/L Carbon Dioxide 21 L (22-30) mmol/L BUN 135 H (7-17) mg/dL Creatinine 6.9 H (0.7-1.2) mg/dL POC Glucose 178 H 192 H (70-105) Calcium 10.7 H (8.4-10.2) mg/dL AST 337 H (5-40) units/L ALT 190 H (7-56) units/L Alkaline Phosphatase 310 H (35-129) units/L Albumin 2.7 L (3.9-5) g/dL 07/04/16 Range/Units 06:00 RBC 3.16 L (3.65-5.03) M/mm3 Hgb 8.9 L (10.1-14.3) gm/dl Hct 27.7 L (30.3-42.9) % RDW 19.6 H (13.2-15.2) % [place] % (Auto) 7.5 H (0.0-7.3) % Seg Neutrophils % 74.5 H (40.0-70.0) % Seg Neutrophils # 7.8 H (1.8-7.7) K/mm3 Sodium (137-145) mmol/L Chloride (98-107) mmol/L Carbon Dioxide (22-30) mmol/L BUN (7-17) mg/dL Creatinine (0.7-1.2) mg/dL POC Glucose (70-105) Calcium (8.4-10.2) mg/dL AST (5-40) units/L ALT (7-56) units/L Alkaline Phosphatase (35-129) units/L Albumin (3.9-5) g/dL
[2016-07-04] MEDS: LEVEMIR SUB-Q SCH (22:41)
[2016-07-05] MEDS: DUONEB 0.5 MG-3 MG/3 ML SOLN IH SCH ×4 (02:24→20:00)
[2016-07-05] MEDS: D5/0.45NS 1,000 ML IV SCH ×2 (03:13→10:50)
[2016-07-05 05:31] LABS: Eosinophils % (Auto) 1.9 % (0.0-4.3); Hematocrit 27.3 % (30.3-42.9); Hemoglobin 8.6 gm/dl (10.1-14.3); Mean Corpuscular HGB Conc 32 % (30-34); Mean Corpuscular Hemoglobin 28 pg (28-32); Mean Corpuscular Volume 87 fl (79-97); Platelet Count 204 K/mm3 (140-440); Red Blood Count 3.12 M/mm3 (3.65-5.03); Red Cell Distribution Width 19.7 % (13.2-15.2); White Blood Count 9.8 K/mm3 (4.5-11.0)
[2016-07-05 05:55] LABS: Calcium 10.2 mg/dL (8.4-10.2); Chloride 105.6 mmol/L (98-107)
[2016-07-05 06:14] LABS: BUN/Creatinine Ratio 18.73
[2016-07-05] MEDS: D50W (25GM) IV PRN (06:17)
--- NOTE | 2016-07-05 08:29 | Ultrasound Report ---
ULTRASOUND RENAL BILATERAL HISTORY: Acute renal insufficiency. TECHNIQUE: transabdominal ultrasound with color Doppler interrogation. FINDINGS: The right kidney measures 10.4 x 5.1 x 4.3cm. Right renal cortex: 1.4cm. The left kidney measures 9.5 x 5.9 x 5.1cm. Left renal cortex: 1.5cm. The kidneys are normal size, contour and position. There is increased renal parenchymal echotexture bilaterally. Corticomedullary differentiation is preserved. No evidence for cystic disease, mass, nephrolithiasis, hydronephrosis or perinephric fluid. The bladder is empty and contains a Hart catheter. IMPRESSION: Renal parenchymal disease.
[2016-07-05] MEDS: ROCEPHIN/NS 1 GM/50 ML 1 GM/50 ML BAG IV SCH (10:51)
[2016-07-05] MEDS: ZYLOPRIM PO SCH (10:54)
[2016-07-05] MEDS: ASPIRIN PO SCH (10:54)
[2016-07-05] MEDS: NORVASC PO SCH (10:54)
[2016-07-05] MEDS: PLAVIX PO SCH (10:54)
[2016-07-05] MEDS: COLACE PO SCH ×2 (10:54→21:50)
[2016-07-05] MEDS: PROzac PO SCH (10:54)
[2016-07-05] MEDS: FEOSOL PO SCH ×2 (10:54→21:50)
[2016-07-05] MEDS: EXELON TD SCH (10:55)
[2016-07-05] MEDS: LOPRESSOR PO SCH ×2 (10:55→22:04)
[2016-07-05] MEDS: SYMMETREL PO SCH (10:55)
--- NOTE | 2016-07-05 13:42 | Progress Note ---
Assessment and Plan 1. Acute metabolic encephalopathy 2. Sepsis: Ruled out. Lactic acid levels are normal. Blood and urine cultures were unremarkable 3. Acute and chronic respiratory failure: Continue bronchodilators and supplemental oxygen 4. Acute kidney injury on chronic kidney disease secondary to vasomotor nephropathy present on admission: Continue with IV hydration as is predominantly prerenal. Appreciate nephrology input 5. Diabetes mellitus: Sliding scale insulin 6. Aphasia: Unknown etiology. CT of the brain showed evidence of chronic infections. 7. Sacral pressure ulcers-present on admission. Local wound care. 8. 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 Hypertension: Optimize blood pressure control 10. s/p PEG tube: Stoma care and feeding regimen by dietitian 11. Transaminasemia.: trend. Expect to improve with hydration 12. Discussed management plan with patient sister who was in the room at the time of evaluation Subjective Date of service: 07/05/16 Principal diagnosis: sepsis, metabolic encephalopathy Interval history: Remains nonverbal, does not follow commands. Patient sister by the bedside stated that pt has swelling of the the arms Objective - Constitutional Vitals: Vital Signs - 12hr 07/05/16 07/05/16 07/05/16 02:24 02:40 05:00 Temperature 97.9 F Pulse Rate [ 82 84 Anterior Bilateral Throughout] Pulse Rate [ 85 Right] Respiratory 20 Rate Respiratory 18 18 Rate [Anterior Bilateral Throughout] Blood Pressure [Left Arm] Blood Pressure 125/70 [Right Arm] O2 Sat by Pulse 100 Oximetry 07/05/16 07/05/16 10:00 12:00 Temperature 99 F Pulse Rate [ Anterior Bilateral Throughout] Pulse Rate [ 85 Right] Respiratory 18 Rate Respiratory Rate [Anterior Bilateral Throughout] Blood Pressure 158/75 [Left Arm] Blood Pressure [Right Arm] O2 Sat by Pulse 98 96 Oximetry General appearance: Present: no acute distress, well-nourished, other (non verbal) - EENT Eyes: PERRL - Neck Neck: supple, normal ROM - Respiratory Respiratory effort: normal Respiratory: bilateral: diminished - Cardiovascular Rhythm: regular Heart Sounds: Present: S1 & S2. Absent: gallop, rub Extremities: pulses intact, normal color, Full ROM Extremity abnormal: edema (slight edema of both upper extremities) - Gastrointestinal General gastrointestinal: Present: soft, non-tender, non-distended, normal bowel sounds, other (PEG tube in place) - Genitourinary Female genitourinary: normal - Integumentary Integumentary: clear, warm, dry - Musculoskeletal Musculoskeletal: 1, strength equal bilaterally - Neurologic Neurologic: moves all extremities - Psychiatric Psychiatric: memory intact, appropriate mood/affect, intact judgment & insight - Labs CBC & Chem 7: 07/05/16 04:49 07/05/16 04:49 Labs: Abnormal lab results 07/05/16 07/05/16 07/05/16 Range/Units 04:49 04:49 06:00 RBC 3.12 L (3.65-5.03) M/mm3 Hgb 8.6 L (10.1-14.3) gm/dl Hct 27.3 L (30.3-42.9) % RDW 19.7 H (13.2-15.2) % [place] % (Auto) 10.4 H (0.0-7.3) % [place] # 1.0 H (0.0-0.8) K/mm3 Carbon Dioxide 20 L (22-30) mmol/L BUN 118 H (7-17) mg/dL Creatinine 6.3 H (0.7-1.2) mg/dL Glucose 56 L (65-100) mg/dL Urine Creatinine 41.9 H (0.1-20.0) mg/dL
[2016-07-05] MEDS ORDERED: SODIUM BICARBONATE FEEDTUBE PRN (13:56)
[2016-07-05] MEDS ORDERED: SIMPLE SYRUP FEEDTUBE PRN ×2 (13:56)
[2016-07-05] MEDS ORDERED: PANCREAZE DR 10,500 UNIT FEEDTUBE PRN (13:56)
--- NOTE | 2016-07-05 16:34 | Progress Note ---
Assessment and Plan Impression * Acute on chronic renal failure. Baseline creatinine approximately 1.6 * Hypernatremia * Dehydration * History of hypertension * History of CVA with right-sided hemiparesis * History of diabetes * uti * hypercalcemia--dehydration and immobility Recommendations: * IV hydration with hypotonic fluids * Patient's renal function baseline cr is 1.6 * no emergent indication for intern product marketing manager therapy today, but if does not improve may need intern product marketing manager * Monitor patient's fluid status, electrolytes and renal function closely * Avoid nephrotoxins * continue iv abx for uti * daily lytes * strict i/os * slowly improving at this time Subjective Date of service: 07/05/16 Principal diagnosis: sepsis, metabolic encephalopathy Interval history: resting in bed today, no acute events Objective - Exam Narrative Exam: VITAL SIGNS: Reviewed. GENERAL: The patient appeared critically ill. Vital signs as documented. HEAD: No signs of head trauma. EYES: Pupils are equal. Extraocular motions intact. EARS: Hearing grossly intact. MOUTH: Oropharynx dry mucous membranes. NECK: No adenopathy, no JVD. CHEST: Chest diminished at the bases bilaterally. Tachypneic CARDIAC: Regular rate and rhythm. S1 and S2, without murmurs, gallops, or rubs. VASCULAR: No Edema. Peripheral pulses normal and equal in all extremities. ABDOMEN: Soft, without detectable tenderness. No sign of distention. No rebound or guarding, and no masses palpated. Bowel Sounds normal. MUSCULOSKELETAL: Good range of motion of all major joints. Extremities without clubbing, cyanosis or edema. NEUROLOGIC EXAM: Aphasic not following commands PSYCHIATRIC: Unable to assess SKIN: Sacral decubitus ulcer - Vital Signs Vital signs: Vital Signs - 12hr 07/05/16 07/05/16 07/05/16 05:00 10:00 12:00 Temperature 97.9 F 99 F Pulse Rate [ Anterior Bilateral Throughout] Pulse Rate [ 85 85 Right] Respiratory 20 18 Rate Respiratory Rate [Anterior Bilateral Throughout] Blood Pressure 158/75 [Left Arm] Blood Pressure 125/70 [Right Arm] O2 Sat by Pulse 100 98 96 Oximetry 07/05/16 07/05/16 14:00 14:10 Temperature Pulse Rate [ 85 86 Anterior Bilateral Throughout] Pulse Rate [ Right] Respiratory Rate Respiratory 18 18 Rate [Anterior Bilateral Throughout] Blood Pressure [Left Arm] Blood Pressure [Right Arm] O2 Sat by Pulse Oximetry - Lab 07/05/16 04:49 07/05/16 04:49 Most recent lab results Calcium 10.2 mg/dL (8.4-10.2) 07/05/16 04:49 Urine Creatinine 41.9 mg/dL (0.1-20.0) H 07/05/16 06:00 Urine Sodium 64 mEq/L 07/05/16 06:00
[2016-07-05] MEDS ORDERED: D5/0.45NS 1,000 ML IV SCH (18:00)
[2016-07-05] MEDS: LEVEMIR SUB-Q SCH (23:30)
[2016-07-06] MEDS: DUONEB 0.5 MG-3 MG/3 ML SOLN IH SCH ×3 (02:08→14:00)
[2016-07-06] MEDS ORDERED: DUONEB 0.5 MG-3 MG/3 ML SOLN IH PRN (08:00)
[2016-07-06 08:06] LABS: Basophils % (Auto) 0.6 % (0.0-1.8); Eosinophils % (Auto) 0.4 % (0.0-4.3); Hematocrit 26.1 % (30.3-42.9); Hemoglobin 8.3 gm/dl (10.1-14.3); Mean Corpuscular HGB Conc 32 % (30-34); Mean Corpuscular Hemoglobin 28 pg (28-32); Mean Corpuscular Volume 87 fl (79-97); Platelet Count 213 K/mm3 (140-440); Red Blood Count 3.01 M/mm3 (3.65-5.03); Red Cell Distribution Width 19.3 % (13.2-15.2)
[2016-07-06 08:28] LABS: Calcium 10.5 mg/dL (8.4-10.2); Chloride 105.8 mmol/L (98-107); Potassium 4.5 mmol/L (3.6-5.0)
[2016-07-06 08:57] LABS: BUN/Creatinine Ratio 15.91
[2016-07-06] MEDS: TYLENOL PO PRN (09:14)
[2016-07-06] MEDS: ROCEPHIN/NS 1 GM/50 ML 1 GM/50 ML BAG IV SCH (10:07)
[2016-07-06] MEDS: EXELON TD SCH (10:20)
[2016-07-06] MEDS: ASPIRIN PO SCH (10:20)
[2016-07-06] MEDS: PLAVIX PO SCH (10:20)
[2016-07-06] MEDS: FEOSOL PO SCH (10:20)
[2016-07-06] MEDS: ZYLOPRIM PO SCH (10:21)
[2016-07-06] MEDS: COLACE PO SCH ×2 (10:21→22:27)
[2016-07-06] MEDS: LOPRESSOR PO SCH ×2 (10:21→22:21)
[2016-07-06] MEDS: NORVASC PO SCH (10:21)
[2016-07-06] MEDS: SYMMETREL PO SCH (10:21)
[2016-07-06] MEDS: PROzac PO SCH (10:21)
--- NOTE | 2016-07-06 14:38 | Progress Note ---
Assessment and Plan Impression * Acute on chronic renal failure. Baseline creatinine approximately 1.6 * Hypernatremia * Dehydration * History of hypertension * History of CVA with right-sided hemiparesis * History of diabetes * uti * hypercalcemia--dehydration and immobility Recommendations: * Continue IV hydration with hypotonic fluids * Patient's renal function baseline cr is 1.6 * no emergent indication for comber operator therapy today, but if does not improve may need comber operator * Monitor patient's fluid status, electrolytes and renal function closely * Avoid nephrotoxins * continue iv abx for uti * daily lytes * strict i/os * Her BUN slowly improving. However serum creatinine still elevated. Discussed with her sister at bedside. She is okay with renal replacement therapy if needed. Subjective Date of service: 07/06/16 Principal diagnosis: sepsis, metabolic encephalopathy Interval history: Patient remains nonverbal. Appears comfortable Objective - Vital Signs Vital signs: Vital Signs - 12hr 07/06/16 07/06/16 07/06/16 05:00 06:49 07:15 Temperature 99.0 F 102.1 F H Pulse Rate 70 Pulse Rate [ Anterior Bilateral Throughout] Pulse Rate [ 95 H Left Radial] Pulse Rate [ 104 H Right] Respiratory 20 26 H Rate Respiratory Rate [Anterior Bilateral Throughout] Blood Pressure Blood Pressure 164/98 174/79 [Left Arm] O2 Sat by Pulse 100 95 Oximetry 07/06/16 07/06/16 07/06/16 07:42 08:01 10:21 Temperature Pulse Rate Pulse Rate [ 93 H Anterior Bilateral Throughout] Pulse Rate [ Left Radial] Pulse Rate [ Right] Respiratory Rate Respiratory 26 H Rate [Anterior Bilateral Throughout] Blood Pressure 163/75 Blood Pressure [Left Arm] O2 Sat by Pulse 100 Oximetry 07/06/16 12:00 Temperature 99.2 F Pulse Rate Pulse Rate [ Anterior Bilateral Throughout] Pulse Rate [ Left Radial] Pulse Rate [ Right] Respiratory 20 Rate Respiratory Rate [Anterior Bilateral Throughout] Blood Pressure Blood Pressure [Left Arm] O2 Sat by Pulse Oximetry - General Appearance General appearance: well-developed, well-nourished, appears stated age EENT: PERRL, mucous membranes moist Neck: no JVD, no thyromegaly, no carotid bruit, supple Respiratory: Present: Ronchi (bilateral scattered rhonchi) Cardiology: regular, normal heart rate, S1S2, no murmurs Gastrointestinal: normoactive bowel sounds, other (PEG tube in place) Integumentary: other (1+ edema) - Lab 07/06/16 07:40 07/06/16 07:40 Most recent lab results Calcium 10.5 mg/dL (8.4-10.2) H 07/06/16 07:40 Urine Creatinine 41.9 mg/dL (0.1-20.0) H 07/05/16 06:00 Urine Sodium 64 mEq/L 07/05/16 06:00
[2016-07-06] MEDS: D50W (25GM) IV PRN (16:42)
[2016-07-06] MEDS: SIMPLE SYRUP FEEDTUBE PRN (21:14)
--- NOTE | 2016-07-06 22:06 | Progress Note ---
Assessment and Plan 1. Acute metabolic encephalopathy 2. Sepsis: Ruled out. Lactic acid levels are normal. Blood and urine cultures were unremarkable 3. Acute and chronic respiratory failure: Continue bronchodilators and supplemental oxygen 4. Acute kidney injury on chronic kidney disease secondary to vasomotor nephropathy present on admission: Continue with IV hydration as is predominantly prerenal. Appreciate nephrology input 5. Diabetes mellitus: Sliding scale insulin 6. Aphasia: Unknown etiology. CT of the brain showed evidence of chronic infections. 7. Sacral pressure ulcers-present on admission. Local wound care. 8. 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 Hypertension: Optimize blood pressure control 10. s/p PEG tube: Stoma care and feeding regimen by dietitian 11. Transaminasemia.: trend. Expect to improve with hydration 12. Discussed management plan with patient sister who was in the room at the time of evaluation Subjective Date of service: 07/06/16 Principal diagnosis: sepsis, metabolic encephalopathy Interval history: Remains nonverbal, does not follow commands. Patient sister by the bedside. Objective - Constitutional Vitals: Vital Signs - 12hr 07/06/16 07/06/16 07/06/16 10:14 10:21 12:00 Temperature 99.2 F Pulse Rate [ Right] Respiratory 24 20 Rate Blood Pressure 163/75 Blood Pressure [Left Arm] 07/06/16 15:15 Temperature 97.8 F Pulse Rate [ 70 Right] Respiratory 24 Rate Blood Pressure Blood Pressure 134/65 [Left Arm] General appearance: Present: no acute distress, other (nonverbal) - EENT Eyes: PERRL, EOM intact - Neck Neck: supple, normal ROM - Respiratory Respiratory effort: normal Respiratory: bilateral: diminished - Cardiovascular Rhythm: regular Heart Sounds: Present: S1 & S2. Absent: gallop, rub Extremities: pulses intact, No edema, normal color, Full ROM - Gastrointestinal General gastrointestinal: Present: soft, non-tender, non-distended, normal bowel sounds, other (PEG tube in place) - Integumentary Integumentary: clear, warm, dry - Neurologic Neurologic: other (nonviable, does not obey commands) - Labs CBC & Chem 7: 07/06/16 07:40 07/06/16 07:40 Labs: Abnormal lab results 07/06/16 07/06/16 Range/Units 07:40 07:40 WBC 16.0 H (4.5-11.0) K/mm3 RBC 3.01 L (3.65-5.03) M/mm3 Hgb 8.3 L (10.1-14.3) gm/dl Hct 26.1 L (30.3-42.9) % RDW 19.3 H (13.2-15.2) % [place] % (Auto) 7.5 H (0.0-7.3) % [place] # 1.2 H (0.0-0.8) K/mm3 Seg Neutrophils % 77.7 H (40.0-70.0) % Seg Neutrophils # 12.4 H (1.8-7.7) K/mm3 Carbon Dioxide 18 L (22-30) mmol/L BUN 113 H (7-17) mg/dL Creatinine 7.1 H (0.7-1.2) mg/dL Glucose 102 H (65-100) mg/dL Calcium 10.5 H (8.4-10.2) mg/dL
[2016-07-06] MEDS: FERROUS SULFATE PO SCH (22:26)
[2016-07-07] MEDS: LEVEMIR SUB-Q SCH (00:13)
[2016-07-07] MEDS: SIMPLE SYRUP FEEDTUBE PRN (06:17)
[2016-07-07] MEDS ORDERED: D50W (25GM) IV PRN (06:53)
[2016-07-07] MEDS: D50W (25GM) IV PRN (07:09)
[2016-07-07] MEDS: NORVASC PO SCH ×2 (07:10→10:31)
[2016-07-07 07:37] LABS: Basophils % (Auto) 0.6 % (0.0-1.8); Eosinophils % (Auto) 1.3 % (0.0-4.3); Hematocrit 26.6 % (30.3-42.9); Hemoglobin 8.4 gm/dl (10.1-14.3); Mean Corpuscular HGB Conc 32 % (30-34); Mean Corpuscular Hemoglobin 27 pg (28-32); Mean Corpuscular Volume 87 fl (79-97); Platelet Count 210 K/mm3 (140-440); Red Blood Count 3.07 M/mm3 (3.65-5.03); Red Cell Distribution Width 19.9 % (13.2-15.2); White Blood Count 12.1 K/mm3 (4.5-11.0)
[2016-07-07 07:48] LABS: Calcium 10.7 mg/dL (8.4-10.2); Chloride 106.4 mmol/L (98-107); Potassium 4.7 mmol/L (3.6-5.0)
[2016-07-07 07:52] LABS: Albumin 2.4 g/dL (3.9-5); Albumin/Globulin Ratio 0.7 %; Bilirubin,Direct 0.6 mg/dL (0-0.2); Bilirubin,Indirect 0.3 mg/dL; Bilirubin,Total 0.9 mg/dL (0.1-1.2)
[2016-07-07 07:57] LABS: BUN/Creatinine Ratio 16.02
[2016-07-07] MEDS: ROCEPHIN/NS 1 GM/50 ML 1 GM/50 ML BAG IV SCH (10:30)
[2016-07-07] MEDS: LOPRESSOR PO SCH ×2 (10:30→23:25)
[2016-07-07] MEDS: PLAVIX PO SCH (10:30)
[2016-07-07] MEDS: FERROUS SULFATE PO SCH ×2 (10:30→23:25)
[2016-07-07] MEDS: EXELON TD SCH (10:31)
[2016-07-07] MEDS: PROzac PO SCH (10:31)
[2016-07-07] MEDS: ZYLOPRIM PO SCH (10:31)
[2016-07-07] MEDS: ASPIRIN PO SCH (10:31)
[2016-07-07] MEDS: COLACE PO SCH ×2 (10:31→23:25)
[2016-07-07] MEDS: SYMMETREL PO SCH (10:31)
--- NOTE | 2016-07-07 11:56 | Progress Note ---
Assessment and Plan Impression * Acute on chronic renal failure. Baseline creatinine approximately 1.6 * Hypernatremia * Dehydration * History of hypertension * History of CVA with right-sided hemiparesis * History of diabetes * uti * hypercalcemia--dehydration and immobility Recommendations: * Shall resume IV fluid. Serum sodium is also noted to be high normal. Shall give her hypotonic fluids * Patient's renal function baseline cr is 1.6 * no emergent indication for composing room machinist therapy today, but if does not improve may need composing room machinist * Monitor patient's fluid status, electrolytes and renal function closely * Avoid nephrotoxins * continue iv abx for uti * daily lytes * strict i/os * Her BUN slowly improving. However serum creatinine still elevated. Discussed with her sister at bedside. She is okay with renal replacement therapy if needed. Subjective Date of service: 07/07/16 Principal diagnosis: sepsis, metabolic encephalopathy Interval history: Patient remains nonverbal. Appears comfortable Objective - Vital Signs Vital signs: Vital Signs - 12hr 07/07/16 07/07/16 07/07/16 00:00 04:00 07:10 Temperature 98.4 F 98.7 F Pulse Rate 75 Pulse Rate [ 72 75 Right] Respiratory 18 22 Rate Blood Pressure 174/84 Blood Pressure 159/98 174/84 [Left Arm] O2 Sat by Pulse 98 100 Oximetry 07/07/16 08:18 Temperature 98.6 F Pulse Rate Pulse Rate [ 88 Right] Respiratory 24 Rate Blood Pressure Blood Pressure 169/77 [Left Arm] O2 Sat by Pulse 99 Oximetry - General Appearance General appearance: well-developed, well-nourished, appears stated age EENT: PERRL, mucous membranes moist Neck: no JVD, no thyromegaly, no carotid bruit, supple Respiratory: Present: Clear to Ascultation Cardiology: regular, normal heart rate, S1S2, no murmurs Gastrointestinal: normal, normoactive bowel sounds Integumentary: no rash, other (no edema) - Lab 07/07/16 07:08 07/07/16 07:08 Most recent lab results Calcium 10.7 mg/dL (8.4-10.2) H 07/07/16 07:08 Urine Creatinine 41.9 mg/dL (0.1-20.0) H 07/05/16 06:00 Urine Sodium 64 mEq/L 07/05/16 06:00
--- NOTE | 2016-07-07 18:45 | Progress Note ---
Assessment and Plan 1. Acute metabolic encephalopathy 2. Sepsis: Ruled out. Lactic acid levels are normal. Blood and urine cultures were unremarkable 3. Acute and chronic respiratory failure: Continue bronchodilators and supplemental oxygen 4. Acute kidney injury on chronic kidney disease secondary to vasomotor nephropathy present on admission: Continue with IV hydration as is predominantly prerenal. Nephrology considering POLICE SERGEANT if Cr not improving with hydration. 5. Diabetes mellitus: Sliding scale insulin 6. Aphasia: Unknown etiology. CT of the brain showed evidence of chronic infections. 7. Sacral pressure ulcers-present on admission. Local wound care. 8. 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 Hypertension: Optimize blood pressure control 10. Oropharyngeal dysphagia: s/p PEG tube: Stoma care and feeding regimen by dietitian 11. Transaminasemia:No imporving with hydration. will obtain RUQ US as [place] phosphastasse is also increased trend. 12. Discussed management plan with patient sister who was in the room at the time of evaluation. She expressed understanding Subjective Date of service: 07/07/16 Principal diagnosis: sepsis, metabolic encephalopathy Interval history: Remains nonverbal, does not follow commands. Awake. Patient sister by the bedside. Objective - Constitutional Vitals: Vital Signs - 12hr 07/07/16 07/07/16 07/07/16 07:10 08:18 12:34 Temperature 98.6 F 100.1 F H Pulse Rate 75 Pulse Rate [ 88 92 H Right] Respiratory 24 20 Rate Blood Pressure 174/84 Blood Pressure 169/77 145/70 [Left Arm] O2 Sat by Pulse 99 99 Oximetry 07/07/16 16:13 Temperature 99.6 F Pulse Rate Pulse Rate [ 81 Right] Respiratory 24 Rate Blood Pressure Blood Pressure 139/68 [Left Arm] O2 Sat by Pulse Oximetry General appearance: Present: no acute distress, other (Bed bound) - EENT Eyes: PERRL - Neck Neck: supple - Respiratory Respiratory: bilateral: diminished - Cardiovascular Rhythm: regular Extremities: no ischemia, No edema - Gastrointestinal General gastrointestinal: Present: soft, non-tender - Integumentary Integumentary: clear, warm - Musculoskeletal Musculoskeletal: generalized weakness, other (unable to ambulate) - Neurologic Neurologic: CNII-XII intact, other (stiff ness of upper extrimities. Parkinson' s like look ) - Psychiatric Psychiatric: appropriate mood/affect - Labs CBC & Chem 7: 07/07/16 07:08 07/07/16 07:08 Labs: Abnormal lab results 07/07/16 07/07/16 07/07/16 Range/Units 07:08 07:08 07:08 WBC 12.1 H (4.5-11.0) K/mm3 RBC 3.07 L (3.65-5.03) M/mm3 Hgb 8.4 L (10.1-14.3) gm/dl Hct 26.6 L (30.3-42.9) % MCH 27 L (28-32) pg RDW 19.9 H (13.2-15.2) % Lymph % (Auto) 10.9 L (13.4-35.0) % Seg Neutrophils % 80.2 H (40.0-70.0) % Seg Neutrophils # 9.7 H (1.8-7.7) K/mm3 Carbon Dioxide 20 L (22-30) mmol/L BUN 109 H (7-17) mg/dL Creatinine 6.8 H (0.7-1.2) mg/dL Glucose 43 L (65-100) mg/dL Calcium 10.7 H (8.4-10.2) mg/dL Direct Bilirubin 0.6 H (0-0.2) mg/dL AST 308 H (5-40) units/L ALT 199 H (7-56) units/L Alkaline Phosphatase 393 H (35-129) units/L Total Protein 6.0 L (6.3-8.2) g/dL Albumin 2.4 L (3.9-5) g/dL
[2016-07-08] MEDS: LEVEMIR SUB-Q SCH ×2 (01:50→22:57)
[2016-07-08 08:16] LABS: Basophils % (Auto) 0.9 % (0.0-1.8); Eosinophils % (Auto) 1.4 % (0.0-4.3); Hematocrit 26.6 % (30.3-42.9); Hemoglobin 8.4 gm/dl (10.1-14.3); Mean Corpuscular HGB Conc 32 % (30-34); Mean Corpuscular Hemoglobin 28 pg (28-32); Mean Corpuscular Volume 88 fl (79-97); Platelet Count 208 K/mm3 (140-440); Red Blood Count 3.03 M/mm3 (3.65-5.03); Red Cell Distribution Width 19.8 % (13.2-15.2); White Blood Count 8.7 K/mm3 (4.5-11.0)
[2016-07-08 08:36] LABS: Albumin 2.5 g/dL (3.9-5); Albumin/Globulin Ratio 0.7 %; Bilirubin,Direct 0.6 mg/dL (0-0.2); Bilirubin,Indirect 0.3 mg/dL; Bilirubin,Total 0.9 mg/dL (0.1-1.2); Calcium 10.4 mg/dL (8.4-10.2); Chloride 104.4 mmol/L (98-107); Potassium 4.4 mmol/L (3.6-5.0)
[2016-07-08 08:45] LABS: BUN/Creatinine Ratio 18.41
--- NOTE | 2016-07-08 09:16 | Ultrasound Report ---
ULTRASOUND ABDOMEN INDICATION: Abnormal liver enzymes. COMPARISON: None similar. FINDINGS: Abdominal sonography suggests slight diffuse hepatic echogenic coarsening. Grossly normal hepatic contours without definite focal suspicious lesions or biliary dilatation. Mild gallbladder sludge without definite gallstones, pericholecystic fluid or positive sonographic Reyes's sign. Gallbladder wall thickness is 2.6 mm. Common bile duct is 2.8 mm. Homogenous spleen, 8.7 cm in length. No ascites. Pancreatic tail partly obscured due to bowel gas. Remainder visualized pancreas, IVC and nonaneurysmal abdominal aorta within normal limits. No hydronephrosis. Right kidney is 11.4 x 5.1 x 6 cm with cortical thickness of 1.9 cm. A 1.1 x 0.8 cm right renal cortical round hyperechoic non-shadowing focus inferiorly noted as on images 17-19, amongst others, possibly fatty/angiomyolipoma, amongst others. Left kidney estimated at 9.2 x 4.7 x 5.3 cm with cortical thickness of 1.4 cm. CONCLUSION: Possible gallbladder sludge, slightly coarse liver and a nonspecific approximately 1 cm right lower renal cortical hyperechoic focus, amongst others, as described. Please correlate. Thank you for the opportunity to participate in this patient's care.
--- NOTE | 2016-07-08 10:24 | Progress Note ---
Assessment and Plan Assessment and plan: 1. Acute metabolic encephalopathy. Family at bedside states that pt. appears back to baseline with mental status 2. Sepsis: Ruled out. Lactic acid levels are normal. Blood and urine cultures were unremarkable 3. Acute and chronic respiratory failure: Continue bronchodilators and supplemental oxygen 4. Acute kidney injury on chronic kidney disease secondary to vasomotor nephropathy present on admission: Continue with IV hydration as is predominantly prerenal. Nephrology considering SYSTEM SOFTWARE PROGRAMMER if Cr not improving with hydration. 5. Diabetes mellitus: Sliding scale insulin 6. Aphasic. History of CVA in the past. 7. Sacral pressure ulcers-present on admission. Local wound care. 8. 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 Hypertension: Optimize blood pressure control 10. Oropharyngeal dysphagia: s/p PEG tube: Stoma care and feeding regimen by dietitian 11. Transaminitis. Etiology likely secondary to sepsis. Ultrasound revealed mild gallbladder sludge without definite gallstones, pericholecystic fluid or Reyes sign. History Interval history: No new issues overnight Hospitalist Physical - Constitutional Vitals: Temp Pulse Resp BP Pulse Ox 99.9 F H 86 24 178/80 99 07/08/16 08:38 07/08/16 08:38 07/08/16 08:38 07/08/16 08:38 07/08/16 08:38 General appearance: Present: no acute distress, other (Bed bound) - EENT Eyes: Present: PERRL, EOM intact ENT: hearing intact, clear oral mucosa, dentition normal - Neck Neck: Present: supple, normal ROM - Respiratory Respiratory effort: normal Respiratory: bilateral: CTA - Cardiovascular Rhythm: regular Heart Sounds: Present: S1 & S2. Absent: gallop, rub - Extremities Extremities: no ischemia, No edema, Full ROM - Abdominal General gastrointestinal: soft, non-tender, non-distended, normal bowel sounds - Integumentary Integumentary: Present: clear, warm, dry - Neurologic Neurologic: CNII-XII intact, moves all extremities Results - Labs CBC & Chem 7: 07/08/16 07:55 07/08/16 07:55 Labs: Laboratory Last Values WBC 8.7 K/mm3 (4.5-11.0) 07/08/16 07:55 RBC 3.03 M/mm3 (3.65-5.03) L 07/08/16 07:55 Hgb 8.4 gm/dl (10.1-14.3) L 07/08/16 07:55 Hct 26.6 % (30.3-42.9) L 07/08/16 07:55 MCV 88 fl (79-97) 07/08/16 07:55 MCH 28 pg (28-32) 07/08/16 07:55 MCHC 32 % (30-34) 07/08/16 07:55 RDW 19.8 % (13.2-15.2) H 07/08/16 07:55 Plt Count 208 K/mm3 (140-440) 07/08/16 07:55 Lymph % (Auto) 14.1 % (13.4-35.0) 07/08/16 07:55 [place] % (Auto) 8.9 % (0.0-7.3) H 07/08/16 07:55 Eos % (Auto) 1.4 % (0.0-4.3) 07/08/16 07:55 Baso % (Auto) 0.9 % (0.0-1.8) 07/08/16 07:55 Lymph # 1.2 K/mm3 (1.2-5.4) 07/08/16 07:55 [place] # 0.8 K/mm3 (0.0-0.8) 07/08/16 07:55 Eos # 0.1 K/mm3 (0.0-0.4) 07/08/16 07:55 Baso # 0.1 K/mm3 (0.0-0.1) 07/08/16 07:55 Seg Neutrophils % 74.7 % (40.0-70.0) H 07/08/16 07:55 Seg Neutrophils # 6.5 K/mm3 (1.8-7.7) 07/08/16 07:55 PT 14.0 Sec. (12.2-14.9) 07/03/16 05:38 INR 1.09 (0.87-1.13) 07/03/16 05:38 VBG pH 7.438 (7.320-7.420) H 07/03/16 05:38 Sodium 140 mmol/L (137-145) 07/08/16 07:55 Potassium 4.4 mmol/L (3.6-5.0) 07/08/16 07:55 Chloride 104.4 mmol/L (98-107) 07/08/16 07:55 Carbon Dioxide 19 mmol/L (22-30) L 07/08/16 07:55 Anion Gap 21 mmol/L 07/08/16 07:55 BUN 116 mg/dL (7-17) H 07/08/16 07:55 Creatinine 6.3 mg/dL (0.7-1.2) H 07/08/16 07:55 Estimated GFR 8 ml/min 07/08/16 07:55 BUN/Creatinine Ratio 18.41 % 07/08/16 07:55 Glucose 205 mg/dL (65-100) H 07/08/16 07:55 POC Glucose 91 (70-105) 07/06/16 11:27 Lactic Acid 0.9 mmol/L (0.7-2.0) 07/03/16 12:12 Calcium 10.4 mg/dL (8.4-10.2) H 07/08/16 07:55 Total Bilirubin 0.9 mg/dL (0.1-1.2) 07/08/16 07:55 Direct Bilirubin 0.6 mg/dL (0-0.2) H 07/08/16 07:55 Indirect Bilirubin 0.3 mg/dL 07/08/16 07:55 AST 233 units/L (5-40) H 07/08/16 07:55 ALT 191 units/L (7-56) H 07/08/16 07:55 Alkaline Phosphatase 451 units/L (35-129) H 07/08/16 07:55 Total Protein 6.0 g/dL (6.3-8.2) L 07/08/16 07:55 Albumin 2.5 g/dL (3.9-5) L 07/08/16 07:55 Albumin/Globulin Ratio 0.7 % 07/08/16 07:55 Urine Color Red (Yellow) 07/03/16 04:51 Urine Turbidity Cloudy (Clear) 07/03/16 04:51 Urine pH 7.0 (5.0-7.0) 07/03/16 04:51 Ur Specific [place] 1.012 (1.003-1.030) 07/03/16 04:51 Urine Protein 100 mg/dl mg/dL (Negative) 07/03/16 04:51 Urine Glucose (UA) Neg mg/dL (Negative) 07/03/16 04:51 Urine Ketones Neg mg/dL (Negative) 07/03/16 04:51 Urine Blood Lg (Negative) 07/03/16 04:51 Urine Nitrite Neg (Negative) 07/03/16 04:51 Urine Bilirubin Neg (Negative) 07/03/16 04:51 Urine Urobilinogen 4.0 mg/dL (<2.0) 07/03/16 04:51 Ur Leukocyte Esterase Lg (Negative) 07/03/16 04:51 Urine WBC (Auto) 12.0 /HPF (0.0-6.0) H 07/03/16 04:51 Urine RBC (Auto) 2.0 /HPF (0.0-6.0) 07/03/16 04:51 U Epithel Cells (Auto) 25.0 /HPF (0-13.0) H 07/03/16 04:51 Urine Bacteria (Auto) 4+ /HPF (Negative) 07/03/16 04:51 Urine Mucus Few /HPF 07/03/16 04:51 Urine Creatinine 41.9 mg/dL (0.1-20.0) H 07/05/16 06:00 Urine Sodium 64 mEq/L 07/05/16 06:00
--- NOTE | 2016-07-08 10:25 | Progress Note ---
Assessment and Plan Impression * Acute on chronic renal failure. Baseline creatinine approximately 1.6 * Hypernatremia * Dehydration * History of hypertension * History of CVA with right-sided hemiparesis * History of diabetes * uti * hypercalcemia--dehydration and immobility Recommendations: * Her renal function is not improving. BUN/creatinine remains elevated. I discussed with her sister over the weekend regarding dialysis. He was okay to proceed. * Shall consult vascular surgery for PermCath placement * She will also require outpatient dialysis arrangement * Patient's renal function baseline cr is 1.6 * Avoid nephrotoxins * continue iv abx for uti * daily lytes * strict i/os Subjective Date of service: 07/08/16 Principal diagnosis: sepsis, metabolic encephalopathy Interval history: Patient remains nonverbal. Appears comfortable Objective - Vital Signs Vital signs: Vital Signs - 12hr 07/07/16 07/07/16 07/08/16 23:25 23:35 03:00 Temperature 98.6 F Pulse Rate 87 Pulse Rate [ 84 87 Right] Respiratory 22 20 Rate Blood Pressure 152/67 Blood Pressure 141/70 [Left Arm] O2 Sat by Pulse 99 95 Oximetry 07/08/16 07/08/16 05:00 08:38 Temperature 98.0 F 99.9 F H Pulse Rate Pulse Rate [ 83 86 Right] Respiratory 22 24 Rate Blood Pressure Blood Pressure 167/65 178/80 [Left Arm] O2 Sat by Pulse 98 99 Oximetry - General Appearance General appearance: well-developed, well-nourished, appears stated age EENT: PERRL, mucous membranes moist Neck: no JVD, no thyromegaly, no carotid bruit, supple Respiratory: Present: Clear to Ascultation Cardiology: regular, normal heart rate, S1S2, no murmurs Gastrointestinal: normal, normoactive bowel sounds, other (PEG tube in place) Integumentary: other (trace edema) - Lab 07/08/16 07:55 07/08/16 07:55 Most recent lab results Calcium 10.4 mg/dL (8.4-10.2) H 07/08/16 07:55 Urine Creatinine 41.9 mg/dL (0.1-20.0) H 07/05/16 06:00 Urine Sodium 64 mEq/L 07/05/16 06:00
[2016-07-08] MEDS ORDERED: NACL 0.9% 100 ML IV PRN (10:26)
[2016-07-08] MEDS ORDERED: ceFAZolin 2 GM in NACL 0.9% 100 ML IV NR (11:07)
[2016-07-08] MEDS: ROCEPHIN/NS 1 GM/50 ML 1 GM/50 ML BAG IV SCH (12:25)
[2016-07-08] MEDS: COLACE PO SCH ×2 (12:26→22:54)
[2016-07-08] MEDS: ASPIRIN PO SCH (12:26)
[2016-07-08] MEDS: EXELON TD SCH (12:26)
[2016-07-08] MEDS: FERROUS SULFATE PO SCH ×2 (12:26→22:54)
[2016-07-08] MEDS: PROzac PO SCH (12:27)
[2016-07-08] MEDS: PLAVIX PO SCH (12:27)
[2016-07-08] MEDS: NORVASC PO SCH (12:27)
[2016-07-08] MEDS: SYMMETREL PO SCH (12:27)
[2016-07-08] MEDS: ZYLOPRIM PO SCH (12:27)
[2016-07-08] MEDS: LOPRESSOR PO SCH ×2 (12:27→22:55)
[2016-07-08] MEDS ORDERED: D5W/0.45% NACL/KCL 40 MEQ 40 MEQ/1,000 ML BAG IV SCH (13:00)
[2016-07-08] MEDS ORDERED: HEPARIN/NS 5000 UNIT/500ML(CATH LAB) 500 ML IR ONE (13:37)
[2016-07-08] MEDS ORDERED: XYLOCAINE 2% INFILTRATI ONE (13:37)
[2016-07-08] MEDS ORDERED: ANCEF/STERILE WATER 2 GM/20 ML 2 GM/20 ML SYRINGE IV ONE (13:37)
[2016-07-08] MEDS ORDERED: NACL 0.9% 250ML 250 ML ONE (13:37)
[2016-07-08] MEDS ORDERED: HEPARIN 10,000 UNITS/10 ML ONE (14:20)
--- NOTE | 2016-07-08 15:08 | Operative Report ---
Operative Report Operative Report: PROCEDURE: Permacath placement INDICATION: Renal failure IMPRESSION: Successful tunneled dialysis catheter placement as discussed below. PLAN: Internal jugular tunneled dialysis catheter can be used immediately. Heparin should be aspirated from the catheter lumens prior to use. STAFF: Kirstin Kimball MD CONTRAST: None COMPLICATIONS: None MEDICATIONS: Lidocaine 2% subcutaneous PROCEDURE: Under real-time ultrasound guidance, the right internal jugular vein was punctured. Permanent ultrasound images of the internal jugular vein were acquired. A subcutaneous tunnel was created requiring a second incision. Using this access , a 23 cm Bard GlidePath dialysis catheter was placed under fluoroscopic guidance with its tip in the right atrium. Each lumen flushed easily and demonstrated a good blood return. A permanent fluoroscopic image was obtained confirming catheter positioning. Heparin lock was placed in catheter ports. This procedure was performed under the personal supervision of Dr. Kimball who was present for the entire procedure. FINDINGS: Ultrasound shows an anechoic and compressible right internal jugular vein. Final images demonstrate a well-positioned tunneled dialysis catheter, with its tip in the right atrium.
[2016-07-08] MEDS ORDERED: NACL 0.9 (PRIMING MACHINE ONLY DIALYSIS) MC ONE (18:37)
[2016-07-09] MEDS: TYLENOL PO PRN (04:56)
[2016-07-09 06:40] LABS: Basophils % (Auto) 0.9 % (0.0-1.8); Eosinophils % (Auto) 1.8 % (0.0-4.3); Hematocrit 23.5 % (30.3-42.9); Hemoglobin 7.6 gm/dl (10.1-14.3); Mean Corpuscular HGB Conc 32 % (30-34); Mean Corpuscular Hemoglobin 28 pg (28-32); Mean Corpuscular Volume 87 fl (79-97); Platelet Count 205 K/mm3 (140-440); White Blood Count 8.9 K/mm3 (4.5-11.0)
[2016-07-09 06:52] LABS: Red Cell Distribution Width 20.6 % (13.2-15.2)
[2016-07-09 06:55] LABS: Albumin 2.5 g/dL (3.9-5); Albumin/Globulin Ratio 0.8 %; BUN/Creatinine Ratio 15.75; Bilirubin,Direct 0.6 mg/dL (0-0.2); Bilirubin,Indirect 0.3 mg/dL; Bilirubin,Total 0.9 mg/dL (0.1-1.2); Calcium 9.7 mg/dL (8.4-10.2); Chloride 104.9 mmol/L (98-107); Potassium 4.2 mmol/L (3.6-5.0); Total Protein 5.8 g/dL (6.3-8.2)
--- NOTE | 2016-07-09 07:30 | Vascular Lab Report ---
MISCELLANEOUS VESSEL IDENTIFICATION: COMMENTS ON THE SCAN: The right internal jugular vein was identified and under real-time ultrasound guidance was cannulated. IMPRESSION: Successful ultrasound guided vein cannulation.
--- NOTE | 2016-07-09 09:10 | Progress Note ---
Assessment and Plan Impression * Acute on chronic renal failure. Baseline creatinine approximately 1.6 * Hypernatremia * Dehydration * History of hypertension * History of CVA with right-sided hemiparesis * History of diabetes * uti * hypercalcemia--dehydration and immobility Recommendations: * Status post PermCath placement on 07/08/16 and initiation of dialysis * Shall schedule patient for dialysis again today and keep her on a Friday, and Friday schedule for now * She will also require outpatient dialysis arrangement * Patient's renal function baseline cr is 1.6 * Avoid nephrotoxins * continue iv abx for uti * strict i/os * Shall stop her IV fluids for now Subjective Principal diagnosis: sepsis, metabolic encephalopathy Interval history: Status post placement of right IJ PermCath and initiation of dialysis. Objective - Vital Signs Vital signs: Vital Signs - 12hr 07/08/16 07/08/16 07/09/16 21:10 22:55 00:51 Temperature 99.2 F 99.1 F Pulse Rate 74 Pulse Rate [ 84 Left Radial] Pulse Rate [ 91 H Right] Respiratory 20 18 Rate Blood Pressure 140/60 Blood Pressure 138/69 [Left Arm] Blood Pressure 122/63 [Right Arm] O2 Sat by Pulse 96 95 Oximetry 07/09/16 04:48 Temperature 99.1 F Pulse Rate Pulse Rate [ 84 Left Radial] Pulse Rate [ Right] Respiratory 20 Rate Blood Pressure Blood Pressure 135/65 [Left Arm] Blood Pressure [Right Arm] O2 Sat by Pulse 95 Oximetry - General Appearance General appearance: well-developed, well-nourished, appears stated age EENT: PERRL, mucous membranes moist Neck: no JVD, no thyromegaly, no carotid bruit, supple, other (right IJ PermCath in place) Respiratory: Present: Clear to Ascultation Cardiology: regular, S1S2 Gastrointestinal: normal, normoactive bowel sounds, other (PEG tube in place) Integumentary: no rash, other (no edema) - Lab 07/09/16 05:51 07/09/16 05:51 Most recent lab results Calcium 9.7 mg/dL (8.4-10.2) 07/09/16 05:51 Urine Creatinine 41.9 mg/dL (0.1-20.0) H 07/05/16 06:00 Urine Sodium 64 mEq/L 07/05/16 06:00
[2016-07-09] MEDS ORDERED: NACL 0.9% 100 ML IV PRN (09:11)
--- NOTE | 2016-07-09 10:09 | Progress Note ---
Assessment and Plan Assessment and plan: 1. Acute metabolic encephalopathy. Family at bedside states that pt. appears back to baseline with mental status 2. Sepsis. Lactic acid levels are normal. Blood and urine cultures were unremarkable 3. Acute and chronic respiratory failure: Continue bronchodilators and supplemental oxygen 4. Acute kidney injury on chronic kidney disease secondary to vasomotor nephropathy present on admission. Patient status post PermCath placement on and initiation of hemodialysis. Continue scheduled Friday, and Friday. Patient will also require outpatient dialysis arrangements. Patient' s renal function baseline is 1.6. 5. Diabetes mellitus: Sliding scale insulin 6. Aphasic. History of CVA in the past. 7. Sacral pressure ulcers-present on admission. Local wound care. 8. 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 Hypertension: Optimize blood pressure control 10. Oropharyngeal dysphagia: s/p PEG tube: Stoma care and feeding regimen by dietitian 11. Transaminitis. Etiology likely secondary to sepsis. Ultrasound revealed mild gallbladder sludge without definite gallstones, pericholecystic fluid or Reyes sign. 12. UTI. Continue antibiotics. 13. Disposition. Patient will need outpatient dialysis arrangements. Case management consult. History Interval history: No new issues overnight. Status post PermCath placement on 07/08/16 Hospitalist Physical - Constitutional Vitals: Temp Pulse Resp BP Pulse Ox 99.1 F 84 20 135/65 95 07/09/16 04:48 07/09/16 04:48 07/09/16 04:48 07/09/16 04:48 07/09/16 04:48 General appearance: Present: no acute distress, other (Bed bound) - EENT Eyes: Present: PERRL, EOM intact ENT: hearing intact, clear oral mucosa, dentition normal - Neck Neck: Present: supple, normal ROM - Respiratory Respiratory effort: normal Respiratory: bilateral: CTA - Cardiovascular Rhythm: regular Heart Sounds: Present: S1 & S2. Absent: gallop, rub - Extremities Extremities: no ischemia, No edema, Full ROM - Abdominal General gastrointestinal: soft, non-tender, non-distended, normal bowel sounds - Integumentary Integumentary: Present: clear, warm, dry - Neurologic Neurologic: CNII-XII intact, moves all extremities Results - Labs CBC & Chem 7: 07/09/16 05:51 07/09/16 05:51 Labs: Laboratory Last Values WBC 8.9 K/mm3 (4.5-11.0) 07/09/16 05:51 RBC 2.70 M/mm3 (3.65-5.03) L 07/09/16 05:51 Hgb 7.6 gm/dl (10.1-14.3) L 07/09/16 05:51 Hct 23.5 % (30.3-42.9) L 07/09/16 05:51 MCV 87 fl (79-97) 07/09/16 05:51 MCH 28 pg (28-32) 07/09/16 05:51 MCHC 32 % (30-34) 07/09/16 05:51 RDW 20.6 % (13.2-15.2) H 07/09/16 05:51 Plt Count 205 K/mm3 (140-440) 07/09/16 05:51 Lymph % (Auto) 19.4 % (13.4-35.0) 07/09/16 05:51 [place] % (Auto) 13.1 % (0.0-7.3) H 07/09/16 05:51 Eos % (Auto) 1.8 % (0.0-4.3) 07/09/16 05:51 Baso % (Auto) 0.9 % (0.0-1.8) 07/09/16 05:51 Lymph # 1.7 K/mm3 (1.2-5.4) 07/09/16 05:51 [place] # 1.2 K/mm3 (0.0-0.8) H 07/09/16 05:51 Eos # 0.2 K/mm3 (0.0-0.4) 07/09/16 05:51 Baso # 0.1 K/mm3 (0.0-0.1) 07/09/16 05:51 Seg Neutrophils % 64.8 % (40.0-70.0) 07/09/16 05:51 Seg Neutrophils # 5.8 K/mm3 (1.8-7.7) 07/09/16 05:51 PT 14.0 Sec. (12.2-14.9) 07/03/16 05:38 INR 1.09 (0.87-1.13) 07/03/16 05:38 VBG pH 7.438 (7.320-7.420) H 07/03/16 05:38 Sodium 142 mmol/L (137-145) 07/09/16 05:51 Potassium 4.2 mmol/L (3.6-5.0) 07/09/16 05:51 Chloride 104.9 mmol/L (98-107) 07/09/16 05:51 Carbon Dioxide 23 mmol/L (22-30) 07/09/16 05:51 Anion Gap 18 mmol/L 07/09/16 05:51 BUN 63 mg/dL (7-17) H 07/09/16 05:51 Creatinine 4.0 mg/dL (0.7-1.2) H 07/09/16 05:51 Estimated GFR 14 ml/min 07/09/16 05:51 BUN/Creatinine Ratio 15.75 % 07/09/16 05:51 Glucose 109 mg/dL (65-100) H 07/09/16 05:51 POC Glucose 100 (70-105) 07/09/16 06:17 Lactic Acid 0.9 mmol/L (0.7-2.0) 07/03/16 12:12 Calcium 9.7 mg/dL (8.4-10.2) 07/09/16 05:51 Total Bilirubin 0.9 mg/dL (0.1-1.2) 07/09/16 05:51 Direct Bilirubin 0.6 mg/dL (0-0.2) H 07/09/16 05:51 Indirect Bilirubin 0.3 mg/dL 07/09/16 05:51 AST 248 units/L (5-40) H 07/09/16 05:51 ALT 152 units/L (7-56) H 07/09/16 05:51 Alkaline Phosphatase 404 units/L (35-129) H 07/09/16 05:51 Total Protein 5.8 g/dL (6.3-8.2) L 07/09/16 05:51 Albumin 2.5 g/dL (3.9-5) L 07/09/16 05:51 Albumin/Globulin Ratio 0.8 % 07/09/16 05:51 Urine Color Red (Yellow) 07/03/16 04:51 Urine Turbidity Cloudy (Clear) 07/03/16 04:51 Urine pH 7.0 (5.0-7.0) 07/03/16 04:51 Ur Specific [place] 1.012 (1.003-1.030) 07/03/16 04:51 Urine Protein 100 mg/dl mg/dL (Negative) 07/03/16 04:51 Urine Glucose (UA) Neg mg/dL (Negative) 07/03/16 04:51 Urine Ketones Neg mg/dL (Negative) 07/03/16 04:51 Urine Blood Lg (Negative) 07/03/16 04:51 Urine Nitrite Neg (Negative) 07/03/16 04:51 Urine Bilirubin Neg (Negative) 07/03/16 04:51 Urine Urobilinogen 4.0 mg/dL (<2.0) 07/03/16 04:51 Ur Leukocyte Esterase Lg (Negative) 07/03/16 04:51 Urine WBC (Auto) 12.0 /HPF (0.0-6.0) H 07/03/16 04:51 Urine RBC (Auto) 2.0 /HPF (0.0-6.0) 07/03/16 04:51 U Epithel Cells (Auto) 25.0 /HPF (0-13.0) H 07/03/16 04:51 Urine Bacteria (Auto) 4+ /HPF (Negative) 07/03/16 04:51 Urine Mucus Few /HPF 07/03/16 04:51 Urine Creatinine 41.9 mg/dL (0.1-20.0) H 07/05/16 06:00 Urine Sodium 64 mEq/L 07/05/16 06:00 Hepatitis A IgM Ab Non-reactive (NonReactive) 07/08/16 21:04 Hep Bs Antigen Non-reactive (Negative) 07/08/16 21:04 Hep B Core IgM Ab Non-reactive (NonReactive) 07/08/16 21:04 Hepatitis C Antibody Non-reactive (NonReactive) 07/08/16 21:04
[2016-07-09] MEDS: D50W (25GM) IV PRN ×6 (10:50→21:40)
[2016-07-09] MEDS: D50W (25GM) IV ONE ×2 (10:55→21:15)
[2016-07-09] MEDS ORDERED: D50W (25GM) IV ONE ×3 (11:12→13:02)
[2016-07-09] MEDS ORDERED: HEPARIN ONE (14:46)
[2016-07-09] MEDS: HEPARIN IV PRN (15:21)
[2016-07-09] MEDS: EXELON TD SCH (15:32)
[2016-07-09] MEDS: ZYLOPRIM PO SCH (15:32)
[2016-07-09] MEDS: LOPRESSOR PO SCH (15:32)
[2016-07-09] MEDS: NORVASC PO SCH (15:32)
[2016-07-09] MEDS: ASPIRIN PO SCH (15:32)
[2016-07-09] MEDS: SYMMETREL PO SCH (15:32)
[2016-07-09] MEDS: COLACE PO SCH (15:32)
[2016-07-09] MEDS: PLAVIX PO SCH (15:32)
[2016-07-09] MEDS: FERROUS SULFATE PO SCH (16:02)
[2016-07-09] MEDS: PROzac PO SCH (16:02)
[2016-07-09] MEDS: ROCEPHIN/NS 1 GM/50 ML 1 GM/50 ML BAG IV SCH (18:34)
[2016-07-09] MEDS: LEVEMIR SUB-Q SCH (23:56)
[2016-07-10] MEDS: D50W (25GM) IV PRN ×2 (01:49→07:05)
[2016-07-10] MEDS: LOPRESSOR PO SCH ×3 (05:34→23:31)
[2016-07-10] MEDS: FERROUS SULFATE PO SCH ×3 (05:34→23:29)
[2016-07-10] MEDS: COLACE PO SCH ×3 (05:34→23:30)
--- NOTE | 2016-07-10 08:49 | Progress Note ---
Assessment and Plan Impression * Acute on chronic renal failure. Baseline creatinine approximately 1.6 * Hypernatremia * Dehydration * History of hypertension * History of CVA with right-sided hemiparesis * History of diabetes * uti * hypercalcemia--dehydration and immobility Recommendations: * Status post PermCath placement on 07/08/16 and initiation of dialysis * Continue dialysis on a Friday, and Friday schedule for now * She will also require outpatient dialysis arrangement * Patient's renal function baseline cr is 1.6 * Avoid nephrotoxins * strict i/os Subjective Date of service: 07/10/16 Principal diagnosis: sepsis, metabolic encephalopathy Interval history: Patient clinically about the same. Remains nonverbal. Objective - Vital Signs Vital signs: Vital Signs - 12hr 07/09/16 07/10/16 07/10/16 23:00 04:32 05:34 Temperature 98 F 98.2 F Pulse Rate 95 H Pulse Rate [ 87 92 H Right] Respiratory 20 18 Rate Blood Pressure 140/68 Blood Pressure 180/77 [Left Arm] Blood Pressure 179/79 [Right Arm] O2 Sat by Pulse 100 Oximetry - General Appearance General appearance: well-developed, well-nourished, appears stated age EENT: PERRL, mucous membranes moist Neck: no JVD, no thyromegaly, other (right IJ PermCath in place) Respiratory: Present: Clear to Ascultation Cardiology: regular, normal heart rate Gastrointestinal: normal, normoactive bowel sounds Integumentary: no rash, other (no edema) - Lab 07/09/16 05:51 07/09/16 21:47 Most recent lab results Calcium 9.7 mg/dL (8.4-10.2) 07/09/16 05:51 Urine Creatinine 41.9 mg/dL (0.1-20.0) H 07/05/16 06:00 Urine Sodium 64 mEq/L 07/05/16 06:00
[2016-07-10 08:52] LABS: BUN/Creatinine Ratio 12.72; Calcium 9.3 mg/dL (8.4-10.2); Potassium 4.2 mmol/L (3.6-5.0)
[2016-07-10] MEDS: ROCEPHIN/NS 1 GM/50 ML 1 GM/50 ML BAG IV SCH (09:25)
[2016-07-10] MEDS: PLAVIX PO SCH (09:26)
[2016-07-10] MEDS: EXELON TD SCH (09:26)
[2016-07-10] MEDS: SYMMETREL PO SCH (09:26)
[2016-07-10] MEDS: ASPIRIN PO SCH (09:26)
[2016-07-10] MEDS: NORVASC PO SCH (09:26)
[2016-07-10] MEDS: ZYLOPRIM PO SCH (09:27)
[2016-07-10] MEDS: PROzac PO SCH (09:27)
--- NOTE | 2016-07-10 11:09 | Progress Note ---
Assessment and Plan Assessment and plan: 1. Acute metabolic encephalopathy. Family at bedside states that pt. appears back to baseline with mental status 2. Sepsis. Lactic acid levels are normal. Blood and urine cultures were unremarkable 3. Acute and chronic respiratory failure: Continue bronchodilators and supplemental oxygen 4. Acute kidney injury on chronic kidney disease secondary to vasomotor nephropathy present on admission. Patient status post PermCath placement on and initiation of hemodialysis. Continue scheduled Friday, and Friday. Patient will also require outpatient dialysis arrangements. Patient' s renal function baseline is 1.6. 5. Diabetes mellitus. Patient with episodes of hypoglycemia yesterday. We will discontinue detemir and scheduled Regular Insulin 3 times a day. Patient will be continued on only sliding scale insulin for now 6. Aphasic. History of CVA in the past. 7. Sacral pressure ulcers-present on admission. Local wound care. 8. 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 Hypertension: Optimize blood pressure control 10. Oropharyngeal dysphagia: s/p PEG tube: Stoma care and feeding regimen by dietitian 11. Transaminitis. Etiology likely secondary to sepsis. Ultrasound revealed mild gallbladder sludge without definite gallstones, pericholecystic fluid or Reyes sign. 12. UTI. Continue antibiotics. 13. Disposition. I discussed with the sister that the patient is much more complicated and I feel that she would not be able to take care of the patient home. Patient will likely need fpc placement. Discussed with Case management. History Interval history: No new issues overnight. Status post PermCath placement on 07/08/16. Nursing reports cold met that was call yesterday evening for hypoglycemia. Patient appears to be back to her baseline. Hospitalist Physical - Constitutional Vitals: Temp Pulse Resp BP Pulse Ox 99 F 76 99 H 137/66 100 07/10/16 07:55 07/10/16 07:55 07/10/16 07:55 07/10/16 07:55 07/10/16 07:55 General appearance: Present: no acute distress, other (Bed bound, somnolent and lethargic) - EENT Eyes: Present: PERRL, EOM intact ENT: hearing intact, clear oral mucosa, dentition normal - Neck Neck: Present: supple, normal ROM - Respiratory Respiratory effort: normal Respiratory: bilateral: CTA - Cardiovascular Rhythm: regular Heart Sounds: Present: S1 & S2. Absent: gallop, rub - Extremities Extremities: no ischemia, No edema, Full ROM - Abdominal General gastrointestinal: soft, non-tender, non-distended, normal bowel sounds - Integumentary Integumentary: Present: clear, warm, dry - Neurologic Neurologic: CNII-XII intact, moves all extremities Results - Labs CBC & Chem 7: 07/09/16 05:51 07/10/16 07:47 Labs: Laboratory Last Values WBC 8.9 K/mm3 (4.5-11.0) 07/09/16 05:51 RBC 2.70 M/mm3 (3.65-5.03) L 07/09/16 05:51 Hgb 7.6 gm/dl (10.1-14.3) L 07/09/16 05:51 Hct 23.5 % (30.3-42.9) L 07/09/16 05:51 MCV 87 fl (79-97) 07/09/16 05:51 MCH 28 pg (28-32) 07/09/16 05:51 MCHC 32 % (30-34) 07/09/16 05:51 RDW 20.6 % (13.2-15.2) H 07/09/16 05:51 Plt Count 205 K/mm3 (140-440) 07/09/16 05:51 Lymph % (Auto) 19.4 % (13.4-35.0) 07/09/16 05:51 [place] % (Auto) 13.1 % (0.0-7.3) H 07/09/16 05:51 Eos % (Auto) 1.8 % (0.0-4.3) 07/09/16 05:51 Baso % (Auto) 0.9 % (0.0-1.8) 07/09/16 05:51 Lymph # 1.7 K/mm3 (1.2-5.4) 07/09/16 05:51 [place] # 1.2 K/mm3 (0.0-0.8) H 07/09/16 05:51 Eos # 0.2 K/mm3 (0.0-0.4) 07/09/16 05:51 Baso # 0.1 K/mm3 (0.0-0.1) 07/09/16 05:51 Seg Neutrophils % 64.8 % (40.0-70.0) 07/09/16 05:51 Seg Neutrophils # 5.8 K/mm3 (1.8-7.7) 07/09/16 05:51 PT 14.0 Sec. (12.2-14.9) 07/03/16 05:38 INR 1.09 (0.87-1.13) 07/03/16 05:38 VBG pH 7.438 (7.320-7.420) H 07/03/16 05:38 Sodium 140 mmol/L (137-145) 07/10/16 07:47 Potassium 4.2 mmol/L (3.6-5.0) 07/10/16 07:47 Chloride 101.0 mmol/L (98-107) 07/10/16 07:47 Carbon Dioxide 27 mmol/L (22-30) 07/10/16 07:47 Anion Gap 16 mmol/L 07/10/16 07:47 BUN 42 mg/dL (7-17) H 07/10/16 07:47 Creatinine 3.3 mg/dL (0.7-1.2) H 07/10/16 07:47 Estimated GFR 17 ml/min 07/10/16 07:47 BUN/Creatinine Ratio 12.72 % 07/10/16 07:47 Glucose 131 mg/dL (65-100) H 07/10/16 07:47 POC Glucose 67 (70-105) L 07/10/16 06:16 Lactic Acid 0.9 mmol/L (0.7-2.0) 07/03/16 12:12 Calcium 9.3 mg/dL (8.4-10.2) 07/10/16 07:47 Total Bilirubin 0.9 mg/dL (0.1-1.2) 07/09/16 05:51 Direct Bilirubin 0.6 mg/dL (0-0.2) H 07/09/16 05:51 Indirect Bilirubin 0.3 mg/dL 07/09/16 05:51 AST 248 units/L (5-40) H 07/09/16 05:51 ALT 152 units/L (7-56) H 07/09/16 05:51 Alkaline Phosphatase 404 units/L (35-129) H 07/09/16 05:51 Total Protein 5.8 g/dL (6.3-8.2) L 07/09/16 05:51 Albumin 2.5 g/dL (3.9-5) L 07/09/16 05:51 Albumin/Globulin Ratio 0.8 % 07/09/16 05:51 Urine Color Red (Yellow) 07/03/16 04:51 Urine Turbidity Cloudy (Clear) 07/03/16 04:51 Urine pH 7.0 (5.0-7.0) 07/03/16 04:51 Ur Specific [place] 1.012 (1.003-1.030) 07/03/16 04:51 Urine Protein 100 mg/dl mg/dL (Negative) 07/03/16 04:51 Urine Glucose (UA) Neg mg/dL (Negative) 07/03/16 04:51 Urine Ketones Neg mg/dL (Negative) 07/03/16 04:51 Urine Blood Lg (Negative) 07/03/16 04:51 Urine Nitrite Neg (Negative) 07/03/16 04:51 Urine Bilirubin Neg (Negative) 07/03/16 04:51 Urine Urobilinogen 4.0 mg/dL (<2.0) 07/03/16 04:51 Ur Leukocyte Esterase Lg (Negative) 07/03/16 04:51 Urine WBC (Auto) 12.0 /HPF (0.0-6.0) H 07/03/16 04:51 Urine RBC (Auto) 2.0 /HPF (0.0-6.0) 07/03/16 04:51 U Epithel Cells (Auto) 25.0 /HPF (0-13.0) H 07/03/16 04:51 Urine Bacteria (Auto) 4+ /HPF (Negative) 07/03/16 04:51 Urine Mucus Few /HPF 07/03/16 04:51 Urine Creatinine 41.9 mg/dL (0.1-20.0) H 07/05/16 06:00 Urine Sodium 64 mEq/L 07/05/16 06:00 Hepatitis A IgM Ab Non-reactive (NonReactive) 07/08/16 21:04 Hep Bs Antigen Non-reactive (Negative) 07/08/16 21:04 Hep B Core IgM Ab Non-reactive (NonReactive) 07/08/16 21:04 Hepatitis C Antibody Non-reactive (NonReactive) 07/08/16 21:04
[2016-07-10 22:26] LABS: Albumin 2.3 g/dL (3.9-5); Albumin/Globulin Ratio 0.6 %; Bilirubin,Direct 0.6 mg/dL (0-0.2); Bilirubin,Indirect 0.3 mg/dL; Bilirubin,Total 0.9 mg/dL (0.1-1.2); Total Protein 5.9 g/dL (6.3-8.2)
--- NOTE | 2016-07-11 09:24 | Discharge Summary ---
Providers - Providers Date of Admission: 07/03/16 07:24 Date of discharge: 07/11/16 Attending physician: PADDY MACIAS 07/03/16 08:00 Consult to Dietitian/Nutrition [CONS] Routine Physician Instructions: Reason For Exam: Reason for Consult: Write/Manage Tube Feeding 07/03/16 13:34 Consult to Physician [CONS] Routine Consulting Provider: FARNAZ MIKE Reason For Exam: ARIE Place consult to:: dr. delgado/ mark Notified:: office Phone number called:: Was contact made?: Yes If yes, spoke with:: alayna Time called:: 14:05 07/03/16 13:52 Consult to Wound/ET Nurse [CONS] Routine Reason For Exam: wound eval 07/08/16 08:12 Consult to Physician [CONS] Routine Consulting Provider: NICOL DEL CASTILLO Reason For Exam: permcath placement Place consult to:: Notified:: n/a Was contact made?: Yes If yes, spoke with:: Jay 07/09/16 09:10 Consult to Case Management [CONS] Routine Services Needed at Discharge: Other Notified:: COPY GIVEN TO CM Comment:: outpatient dialysis arrangement 07/09/16 23:19 PICC Line Placement [Consult to PICC Line RN] [CONS] Urgent Reason For Exam: hypoglycemia Type Line:: PICC Primary care physician: [facility] Hospitalization Reason for admission: ARF Condition: Serious Hospital course: Patient is a 66-year-old female history of CVA and since then has been home bound and bedbound also history of hypertension, insulin-dependent diabetes, decubitus ulcers presented to the emergency department with labored breathing. Patient's sister cares for the patient reported some difficulty with panic to feeding and worsening wounds. Patient has also had some recurrent cystitis over the past month prior to admission. On this hospitalization patient was found have acute kidney injury on stage III chronic kidney disease with baseline creatinine of 1.6 and urinalysis consistent with UTI. Blood cultures were found to be negative. Patient received IV fluid hydration with hypotonic fluids and free water with tube feedings 200 mL's every 4 hours. Patient's kidney function did not improve therefore permacath was placed on 07/08/2016 and hemodialysis was initiated. I had a long discussion with the sister regarding overall medical needs and care. She agreed that patient probably would need a higher level of care with fdc placement. Case management was consulted and patient will be discharged to fdc. Dedicated discharge time 35 minutes. Disposition: DC/TX SNF W [facility] Time spent for discharge: 35 - Discharge Diagnoses (1) ARF (acute renal failure) Status: Acute Qualifiers: Acute renal failure type: unspecified Qualified Code(s): N17.9 - Acute kidney failure, unspecified (2) Urinary tract infection Status: Acute Qualifiers: Urinary tract infection type: site unspecified Hematuria presence: without hematuria Indwelling urinary catheter type: I Encounter type: E Qualified Code(s): N39.0 - Urinary tract infection, site not specified (3) Chronic renal insufficiency Status: Acute Qualifiers: Chronic kidney disease stage: unspecified stage Qualified Code(s): N18.9 - Chronic kidney disease, unspecified (4) Dementia Status: Acute Qualifiers: Dementia type: D Alzheimer's disease onset: A Dementia behavioral disturbance: D (5) Diabetes 1.5, managed as type 2 Status: Acute Core Measure Documentation - Palliative Care Palliative Care/ Comfort Measures: Not Applicable - Core Measures Any of the following diagnoses?: none Exam - Constitutional Vitals: Temp Pulse Resp BP Pulse Ox 98.9 F 76 22 140/73 96 07/11/16 08:00 07/11/16 08:00 07/11/16 08:00 07/11/16 08:00 07/11/16 08:00 General appearance: Present: no acute distress, other (somnolent) - EENT Eyes: Present: PERRL ENT: hearing intact, clear oral mucosa - Neck Neck: Present: supple, normal ROM - Respiratory Respiratory effort: normal Respiratory: bilateral: CTA - Cardiovascular Heart Sounds: Present: S1 & S2. Absent: rub, click - Extremities Extremities: pulses symmetrical, No edema Peripheral Pulses: within normal limits - Abdominal General gastrointestinal: Present: soft, non-tender, non-distended, normal bowel sounds Female genitourinary: Present: normal - Integumentary Integumentary: Present: clear, warm, dry - Musculoskeletal Musculoskeletal: gait normal, strength equal bilaterally - Psychiatric Psychiatric: appropriate mood/affect, intact judgment & insight - Neurologic Neurologic: CNII-XII intact, moves all extremities Plan Activity: advance as tolerated Weight Bearing Status: Non-Weight Bearing Diet: other (tube feedings) Follow up with: PRIMARY CAREMD [Primary Care Provider] - 3-5 Days FARNAZ MIKE MD [Staff Physician] - 7 Days
[2016-07-11] MEDS: ROCEPHIN/NS 1 GM/50 ML 1 GM/50 ML BAG IV SCH (10:05)
[2016-07-11] MEDS: ZYLOPRIM PO SCH (10:06)
[2016-07-11] MEDS: COLACE PO SCH (10:06)
[2016-07-11] MEDS: NORVASC PO SCH (10:06)
[2016-07-11] MEDS: PROzac PO SCH (10:06)
[2016-07-11] MEDS: FERROUS SULFATE PO SCH (10:06)
[2016-07-11] MEDS: EXELON TD SCH (10:06)
[2016-07-11] MEDS: PLAVIX PO SCH (10:06)
[2016-07-11] MEDS: ASPIRIN PO SCH (10:06)
[2016-07-11] MEDS: LOPRESSOR PO SCH (10:06)
[2016-07-11] MEDS: SYMMETREL PO SCH (10:07)
[2016-07-11] MEDS ORDERED: NACL 0.9 (PRIMING MACHINE ONLY DIALYSIS) MC ONE (12:56)
[2016-07-11] MEDS: HEPARIN IV PRN (13:50)
[2016-07-11 15:54] VITALS: BP 101/58
--- NOTE | 2016-07-11 16:27 | Progress Note ---
Assessment and Plan Impression * Acute on chronic renal failure. Baseline creatinine approximately 1.6 * Hypernatremia * Dehydration * History of hypertension * History of CVA with right-sided hemiparesis * History of diabetes * uti * hypercalcemia--dehydration and immobility Recommendations: * Status post PermCath placement on 07/08/16 and initiation of dialysis * Continue dialysis on a Friday, and Friday schedule for now * She will also require outpatient dialysis arrangement * Patient's renal function baseline cr is 1.6 * Avoid nephrotoxins * strict i/os Subjective Date of service: 07/11/16 Principal diagnosis: sepsis, metabolic encephalopathy Interval history: Patient is comfortable. Seen in the dialysis room. Just finishing up her dialysis. Patient remains nonverbal Objective - Vital Signs Vital signs: Vital Signs - 12hr 07/11/16 07/11/16 07/11/16 06:08 08:00 10:50 Temperature 98.9 F 98.9 F Pulse Rate 69 76 Pulse Rate [ 76 Right] Respiratory 22 18 Rate Blood Pressure 154/79 Blood Pressure 140/73 [Left Arm] O2 Sat by Pulse 96 Oximetry 07/11/16 07/11/16 07/11/16 11:00 11:15 11:30 Temperature Pulse Rate 72 70 69 Pulse Rate [ Right] Respiratory Rate Blood Pressure 145/78 146/71 142/66 Blood Pressure [Left Arm] O2 Sat by Pulse Oximetry 07/11/16 07/11/16 07/11/16 11:45 12:00 12:15 Temperature Pulse Rate 70 70 69 Pulse Rate [ Right] Respiratory Rate Blood Pressure 141/71 141/65 129/68 Blood Pressure [Left Arm] O2 Sat by Pulse Oximetry 07/11/16 07/11/16 07/11/16 12:30 12:45 13:00 Temperature Pulse Rate 72 70 71 Pulse Rate [ Right] Respiratory Rate Blood Pressure 145/66 128/69 130/65 Blood Pressure [Left Arm] O2 Sat by Pulse Oximetry 07/11/16 07/11/16 07/11/16 13:15 13:30 13:50 Temperature Pulse Rate 71 70 72 Pulse Rate [ Right] Respiratory Rate Blood Pressure 130/65 132/66 134/66 Blood Pressure [Left Arm] O2 Sat by Pulse Oximetry 07/11/16 07/11/16 14:00 15:54 Temperature 98.5 F 97.5 F L Pulse Rate 72 Pulse Rate [ 66 Right] Respiratory 18 22 Rate Blood Pressure 135/62 Blood Pressure 101/58 [Left Arm] O2 Sat by Pulse Oximetry - General Appearance General appearance: well-developed, well-nourished, appears stated age EENT: PERRL, mucous membranes moist Neck: no JVD, no thyromegaly, no carotid bruit, supple, other (right IJ PermCath in place) Respiratory: Present: Clear to Ascultation Cardiology: regular, normal heart rate, S1S2, no murmurs Gastrointestinal: normal, normoactive bowel sounds Integumentary: no rash, other (no edema) - Lab 07/09/16 05:51 07/10/16 07:47 Most recent lab results Calcium 9.3 mg/dL (8.4-10.2) 07/10/16 07:47 Urine Creatinine 41.9 mg/dL (0.1-20.0) H 07/05/16 06:00 Urine Sodium 64 mEq/L 07/05/16 06:00
== END 2016-07-11 19:20 | DRG 871 ==
LOC: ED 04:07 → 3A 07:24
PROVIDERS: ADMIT Internal Medicine; ATTEND Hospitalist
PROC: 5A1D60Z (ICD-10-PCS; 2016-07-03)
PROC: 02H633Z Insertion of Infusion Device into Right Atrium, Percutaneous Approach (ICD-10-PCS; principal; 2016-07-08)
PROC: B5131ZA Fluoroscopy of Right Jugular Veins using Low Osmolar Contrast, Guidance (ICD-10-PCS; 2016-07-08)
DX: A41.9 Sepsis, unspecified organism (principal); G93.41 Metabolic encephalopathy; J96.20 Acute and chronic respiratory failure, unspecified whether with hypoxia or hypercapnia; N17.0 Acute kidney failure with tubular necrosis; E87.0 Hyperosmolality and hypernatremia; N39.0 Urinary tract infection, site not specified; L89.159 Pressure ulcer of sacral region, unspecified stage; E11.22 Type 2 diabetes mellitus with diabetic chronic kidney disease; M19.90 Unspecified osteoarthritis, unspecified site; M10.9 Gout, unspecified; E83.52 Hypercalcemia; F03.90 Unspecified dementia, unspecified severity, without behavioral disturbance, psychotic disturbance, mood disturbance, and anxiety; R13.12 Dysphagia, oropharyngeal phase; I12.9 Hypertensive chronic kidney disease with stage 1 through stage 4 chronic kidney disease, or unspecified chronic kidney disease; N18.3 Chronic kidney disease, stage 3 (moderate); E86.0 Dehydration; Z88.2 Allergy status to sulfonamides; Z99.2 Dependence on renal dialysis; Z86.73 Personal history of transient ischemic attack (TIA), and cerebral infarction without residual deficits; Z74.01 Bed confinement status; Z93.1 Gastrostomy status
CPT/HCPCS: 36415; 36558; 70450; 71010; 76700; 76770; 76937; 77001; 80048; 80053; 80074; 81001; 82140; 82570; 82805; 82947; 82962; 84300; 85025; 85027; 85610; 87040; 87086; 93005; 93010; 94640; A9270-GY; C1750; J0690; J0696; J0885; J1644; J1815; J1818; J7030; J7040; J7050